=== PATIENT | female | born 1975 | race Hispanic/Latino ===

== ENCOUNTER 2017-06-30 01:25 | Outpatient (CLI) | payer OTHER | END 2017-06-30 01:26 | disposition home or self-care (01) | LOC: BICMRI 01:25 | PROVIDERS: ATTEND Podiatrist Foot & Ankle Surgery | DX: S93.602A Unspecified sprain of left foot, initial encounter (principal); S90.32XA Contusion of left foot, initial encounter; M79.672 Pain in left foot ==

== ENCOUNTER 2017-07-10 12:44 | Emergency (ER) | payer OTHER ==
[2017-07-10 13:25] LABS: Bilirubin Negative (Negative); Blood, Urine Negative (Negative); Glucose, Urine (Dipstick) Negative (Negative); Ketone, Urine Negative (Negative); Nitrite Negative (Negative); Protein, Urine (Dipstick) Negative (Neg-Trace); Urobilinogen 0.2 mg/dL (0.2-1.0)
[2017-07-10 13:37] LABS: #Eosinphils 0.1 thou/uL (0.0-0.7); #Lymphocytes 2.1 thou/uL (1.20-3.40); #Monocytes 0.3 thou/uL (0.11-0.59); #Neutrophils 2.6 thou/uL (1.40-6.50); %Basophils 0.5 % (0.0-1.0); %Eosinophils 1.8 % (0.0-10.0); %Lymphocytes 40.7 % (21.0-51.0); %Monocytes 6.5 % (0.0-10.0); White Blood Cell (WBC) Count 5.1 thou/uL (4.8-10.8)
[2017-07-10] MEDS ORDERED: Fentanyl 100 MCG/2 ML VIAL ONE (13:53)
[2017-07-10 14:10] LABS: ALT (SGPT) 45 U/L (8-55); AST (SGOT) 44 U/L (5-34); Alkaline Phosphatase 94 U/L (40-150); Anion Gap 13 mmol/L (10-20); BUN (Urea Nitrogen) 14 mg/dL (7.0-18.7); Bilirubin, Total 0.4 mg/dL (0.2-1.2); Calc. Creatinine Clearance 0 mL/min (70-130); Calcium 9.2 mg/dL (7.8-10.44); Carbon Dioxide 26 mmol/L (22-29); Chloride 106 mmol/L (98-107); Estimated GFR-MDRD 89; Globulin 3.2 g/dL (2.4-3.5); Protein, Total 7.1 g/dL (6.0-8.3)
--- NOTE | 2017-07-10 15:10 | CT ---
CT ABDOMEN WITHOUT IV CONTRAST: TECHNIQUE: Multiple axial tomograms obtained through the abdomen without IV enhancement. HISTORY: Left flank pain. FINDINGS: Lung bases clear. A 3 cm cyst in the upper right lobe of liver under the diaphragm. The liver, spleen, and pancreas ar e otherwise unremarkable. Post-cholecystectomy changes noted. Kidneys appear unremarkable. There is no evidence of hydronephrosis. There is evidence of a tiny ca lculus in the upper mid collecting structures of the left kidney measuring in the 2 mm range. No oth er evidence of urinary calculus. No ureteral calculus or obstruction seen. The bladder is only mild ly distended and appears unremarkable. Small bowel loops appear normal. Appendix appears normal. Colon unremarkable. Aorta normal caliber . No adenopathy. IMPRESSION: 1. A tiny nonobstructing calculus in the upper mid collecting structures of the left kidney. 2. No acute process identified. POS: [facility]
== END 2017-07-10 15:13 | disposition home or self-care (01) ==
LOC: ERS 12:44
DX: M54.9 Dorsalgia, unspecified (principal); Z79.899 Other long term (current) drug therapy
CPT/HCPCS: 74176; 80053; 81003; 85025; 87086; 96361; 96374; J3010

== ENCOUNTER 2017-07-14 12:09 | Emergency (ER) | payer OTHER ==
[2017-07-14 12:31] LABS: Bilirubin Negative (Negative); Blood, Urine Negative (Negative); Glucose, Urine (Dipstick) Negative (Negative); Ketone, Urine Negative (Negative); Nitrite Negative (Negative); Protein, Urine (Dipstick) Negative (Neg-Trace); Urobilinogen 0.2 mg/dL (0.2-1.0)
[2017-07-14] MEDS ORDERED: Ketorolac Tromethamine 60 MG/2 ML VIAL ONE (12:39)
== END 2017-07-14 12:53 | disposition home or self-care (01) ==
LOC: SCSER 12:09
DX: R10.9 Unspecified abdominal pain (principal)
CPT/HCPCS: 81003; 96372; J1885

== ENCOUNTER 2017-08-29 12:53 | Emergency (ER) | payer OTHER ==
[2017-08-29] MEDS ORDERED: Famotidine/PF 20 mg/2ml Vial ONE (13:53)
[2017-08-29] MEDS ORDERED: Ondansetron HCl/PF 4 MG/2 ML Vial ONE (13:53)
[2017-08-29 14:10] LABS: #Monocytes 0.4 thou/uL (0.11-0.59); #Neutrophils 6.8 thou/uL (1.40-6.50); %Basophils 0.5 % (0.0-1.0); %Eosinophils 0.3 % (0.0-10.0); %Lymphocytes 12.5 % (21.0-51.0); %Monocytes 4.4 % (0.0-10.0); %Neutrophils 82.3 % (42.0-75.0); Hemoglobin 12.4 g/dL (12.0-16.0); Mean Corpuscular HGB CONC 33.1 g/dL (32.0-36.0); Mean Corpuscular Hemoglobin 27.1 pg (27.0-31.0); Mean Corpuscular Volume 81.7 fl (81.0-99.0); Mean Platelet Volume 7.9 fL (7.4-10.4); Platelet Count 200 thou/uL (130-400); RBC Distribution Width 11.8 % (11.5-14.5); White Blood Cell (WBC) Count 8.3 thou/uL (4.8-10.8)
[2017-08-29 14:26] LABS: ALT (SGPT) 62 U/L (8-55); AST (SGOT) 56 U/L (5-34); Alkaline Phosphatase 95 U/L (40-150); Anion Gap 14 mmol/L (10-20); BUN (Urea Nitrogen) 10 mg/dL (7.0-18.7); Bilirubin, Total 0.5 mg/dL (0.2-1.2); Calc. Creatinine Clearance 0 mL/min (70-130); Calcium 9.2 mg/dL (7.8-10.44); Carbon Dioxide 24 mmol/L (22-29); Chloride 106 mmol/L (98-107); Estimated GFR-MDRD 87; Globulin 2.9 g/dL (2.4-3.5); Glucose 123 mg/dL (70-105); Lipase 12 U/L (8-78); Potassium 3.6 mmol/L (3.5-5.1); Protein, Total 6.9 g/dL (6.0-8.3); Sodium 140 mmol/L (136-145)
[2017-08-29 14:55] LABS: Bilirubin Negative (Negative); Blood, Urine Negative (Negative); Clarity Slightly Cloudy (Clear); Glucose, Urine (Dipstick) Negative (Negative); Leukocyte Negative (Negative); Nitrite Negative (Negative); Protein, Urine (Dipstick) Trace mg/dL (Neg-Trace); Urobilinogen 0.2 mg/dL (0.2-1.0); pH, Urine 5.5 (5.0-9.0)
--- NOTE | 2017-08-29 15:46 | RAD ---
CHEST ONE VIEW ABDOMEN TWO VIEWS: History: 41-year-old female with history of abdominal pain. Comparison: 06-08-16 FINDINGS: No significant acute process in the chest. No free intraperitoneal air. There is some gas and fluid n oted throughout the colon which certainly could account for the patient's diarrhea. No evidence for o vert bowel obstruction or calculus. IMPRESSION: Air fluid levels throughout the colon which certainly could account for the patient's diarrhea. No alirio wel obstruction, overt calculus or other acute process. POS: [facility]
== END 2017-08-29 15:45 | disposition home or self-care (01) ==
LOC: SCSER 12:53
DX: K52.9 Noninfective gastroenteritis and colitis, unspecified (principal); G61.0 Guillain-Barre syndrome; Z87.442 Personal history of urinary calculi; Z79.899 Other long term (current) drug therapy
CPT/HCPCS: 74022; 80053; 81003; 83690; 85025; 96361; 96374; 96375; J2405; S0028

== ENCOUNTER 2017-10-19 07:49 | Outpatient (CLI) | payer OTHER ==
--- NOTE | 2017-10-19 09:29 | ULT ---
HEPATIC ULTRASOUND WITH DUPLEX EVALUATION: Indication: Abnormal LFTs. TECHNIQUE: Grayscale, color Doppler and vascular duplex with spectral analysis was performed of the right upper quadrant and hepatic vasculature. FINDINGS: There is prominent fatty infiltration of the liver. The liver is enlarged measuring 19.3 cm. Spleen m easures 11.8 cm. The gallbladder is surgically absent. Common bile duct measures 7 mm. Visualized asp ect of the pancreas unremarkable. Right kidney measures 10.6 cm in length without focal lesion or hyd ronephrosis. There appropriate hepatopedal flow seen within the hepatic vasculature. IMPRESSION: 1. Hepatomegaly with fatty infiltration. 2. Cholecystectomy. 3. Appropriate hepatopedal flow demonstrated. POS: [facility]
== END 2017-10-19 07:50 | disposition home or self-care (01) ==
LOC: ULT 07:49
PROVIDERS: ATTEND Internal Medicine Gastroenterology
DX: R94.5 Abnormal results of liver function studies (principal); K76.0 Fatty (change of) liver, not elsewhere classified; Z90.49 Acquired absence of other specified parts of digestive tract
CPT/HCPCS: 76705

== ENCOUNTER 2017-10-27 20:08 | Observation (INO) | payer OTHER ==
[2017-10-27 22:06] LABS: Bilirubin Negative (Negative); Blood, Urine Negative (Negative); Clarity CLEAR (Clear); Glucose, Urine (Dipstick) Negative (Negative); Leukocyte Trace (Negative); Nitrite Negative (Negative); Protein, Urine (Dipstick) Negative (Neg-Trace); Specific Gravity, Urine 1.014 (1.002-1.036); Urobilinogen 0.2 mg/dL (0.2-1.0)
[2017-10-27 22:08] LABS: Bacteria/HPF None Seen HPF (None Seen); Hyaline Casts/LPF 0-3 HYALINE CAST LPF (0-3 Hyaline); Pathc Cast-AUWi Flag 0.29 (0-2.49); Squamous Epithelial 0-3 HPF (0-3)
[2017-10-27 22:18] LABS: RBC/HPF 0-3 HPF (0-3)
[2017-10-27 22:21] LABS: #Lymphocytes 1.7 thou/uL (1.20-3.40); #Monocytes 0.3 thou/uL (0.11-0.59); #Neutrophils 5.1 thou/uL (1.40-6.50); %Basophils 0.5 % (0.0-1.0); %Eosinophils 0.7 % (0.0-10.0); %Lymphocytes 23.1 % (21.0-51.0); %Monocytes 4.5 % (0.0-10.0); %Neutrophils 71.2 % (42.0-75.0); Mean Corpuscular HGB CONC 34.2 g/dL (32.0-36.0); Mean Corpuscular Hemoglobin 28.5 pg (27.0-31.0); Mean Corpuscular Volume 83.2 fl (81.0-99.0); Mean Platelet Volume 7.5 fL (7.4-10.4); Platelet Count 220 thou/uL (130-400); RBC Distribution Width 12.5 % (11.5-14.5); Red Blood Cell (RBC) Count 4.22 mill/uL (4.20-5.40); White Blood Cell (WBC) Count 7.2 thou/uL (4.8-10.8)
[2017-10-27 22:49] LABS: ALT (SGPT) 184 U/L (8-55); AST (SGOT) 159 U/L (5-34); Albumin 4.2 g/dL (3.5-5.0); Alkaline Phosphatase 152 U/L (40-150); Anion Gap 9 mmol/L (10-20); BUN (Urea Nitrogen) 9 mg/dL (7.0-18.7); Bilirubin, Total 0.4 mg/dL (0.2-1.2); Calc. Creatinine Clearance 0 mL/min (70-130); Calcium 8.8 mg/dL (7.8-10.44); Carbon Dioxide 26 mmol/L (22-29); Chloride 110 mmol/L (98-107); Estimated GFR-MDRD 81; Globulin 2.7 g/dL (2.4-3.5); Glucose 129 mg/dL (70-105); Potassium 3.8 mmol/L (3.5-5.1); Protein, Total 6.9 g/dL (6.0-8.3); Sodium 141 mmol/L (136-145)
--- NOTE | 2017-10-27 23:11 | CT ---
CT HEAD WITHOUT CONTRAST: 10/27/17 Multiple axial tomograms obtained through the head without IV enhancement. HISTORY: Dizziness. Comparison is made to a prior head CT of 02/13/15. Ventricles have normal size and position. No evidence of mass or hemorrhage. No evidence of acute inf arct. Sinuses and mastoids are aerated. IMPRESSION: No acute abnormality identified. POS: [facility]
[2017-10-28 01:46] VITALS: BMI 34.3
[2017-10-28] MEDS ORDERED: Cyclobenzaprine 10 MG TAB PO PRN (14:46)
[2017-10-28] MEDS ORDERED: Baclofen 10 MG TAB PO PRN (14:46)
[2017-10-28] MEDS ORDERED: Zolpidem Tartrate 5 MG TAB PO PRN (14:46)
[2017-10-28] MEDS ORDERED: Acetaminophen 325 MG TAB PO PRN (14:48)
[2017-10-28] MEDS ORDERED: methylPREDNISolone 4 mg Tablet PO SCH ×3 (15:00→21:00)
[2017-10-28] MEDS: Ibuprofen 800 MG TAB PO SCH ×2 (15:08→20:31)
[2017-10-28] MEDS: HYDROcodone/Acetaminophen 5/325 mg Tablet PO PRN (17:12)
[2017-10-28] MEDS ORDERED: ALPRAZolam 0.5 MG TAB PO SCH (17:30)
[2017-10-28] MEDS ORDERED: Lorazepam 2 MG/ML VIAL SLOW IVP SCH (17:30)
[2017-10-28 18:01] LABS: Bilirubin Negative (Negative); Blood, Urine Negative (Negative); Clarity CLEAR (Clear); Glucose, Urine (Dipstick) Negative (Negative); Leukocyte Negative (Negative); Nitrite Negative (Negative); Protein, Urine (Dipstick) Negative (Neg-Trace); Specific Gravity, Urine 1.008 (1.002-1.036); Urobilinogen 0.2 mg/dL (0.2-1.0); pH, Urine 7.5 (5.0-9.0)
[2017-10-28 18:04] LABS: Bacteria/HPF None Seen HPF (None Seen); Hyaline Casts/LPF 0-3 HYALINE CAST LPF (0-3 Hyaline); RBC/HPF 0-3 HPF (0-3); Squamous Epithelial 0-3 HPF (0-3); WBC/HPF 0-3 HPF (0-3)
[2017-10-28] MEDS: Gabapentin 300 MG CAP PO SCH (20:31)
[2017-10-28] MEDS: Pregabalin 50 MG CAP PO SCH (20:31)
[2017-10-28] MEDS ORDERED: Amitriptyline HCl 25 MG TAB PO PRN (21:00)
[2017-10-28] MEDS: Acyclovir 400 mg Tablet PO SCH (21:16)
--- NOTE | 2017-10-29 00:14 | CON ---
DATE OF CONSULTATION: 10/28/2017 REFERRING PROVIDER: Dr. Rissa Valdez. REASON FOR CONSULTATION: Paresthesia. HISTORY OF PRESENT ILLNESS: Ms. Virk is a pleasant 41-year-old female who has been cons ulted for evaluation of paresthesia in both upper and lower extremities and questionable Guillain-Bar re syndrome. She reports that a few days ago, she suddenly noticed weakness in the facial muscles on her right side. She was having difficulty with smiling, difficulty with closing her right eye. She had seen her primary care physician who started her on Medrol Dosepak along with acyclovir. She was discharged. She states that over on yesterday, she started having numbness and tingling in her hand s and feet. This was bothering and concerning her for Guillain-Berlin syndrome, which prompted her to present to the [facility]. 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 She was actually admitted to [facility] at that time and was seen by Dr. Benitez and the workup at that time was negative. She was then transferred to a facility in [facility] for secondary evaluation where she states that she was diagnosed with Guillain-Berlin syndrome and was given some form of medication for 5 days. This improved her symptoms completely and she was dis charged back to home. She did not have any facial weakness, vision difficulty, dysarthria, dysphagia or weakness in upper and lower extremities. Her balance was good at that time. The only symptom th at she had when she was diagnosed with Guillain-Berlin syndrome was paresthesia which she feels are si milar at this time and tells she feels like she may have Guillain-Berlin syndrome. 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 PAST SURGICAL HISTORY: Significant for hysterectomy, cholecystectomy, tubal ligation. SOCIAL HISTORY: She denies smoking, alcohol use, or illicit drug use. FAMILY HISTORY: Noncontributory. CURRENT MEDICATIONS: Please review MAR. ALLERGIES: No known drug allergies. REVIEW OF SYSTEMS: As mentioned above in HPI, negative. PHYSICAL EXAMINATION: VITAL SIGNS: Blood pressure 125/71, pulse of 77, temperature of 98.2, respirations of 16, O2 sats 96 % on room air. GENERAL: Well-developed, well-nourished female in no apparent distress. RESPIRATORY: Clear to auscultation bilaterally. CARDIOVASCULAR: Regular rate and rhythm. NEUROLOGIC: Mental status: The patient is awake, alert, oriented x3. Speech and language: Fluent speech. Cranial nerves: Pupils are 3 mm and reactive. Visual felipe are intact. Extraocular muscl es are intact. No nystagmus is noted. She has a right lower motor neuron type facial weakness. Ton toño and uvula are midline. Motor exam showed normal tone and bulk with a 5/5 strength in both upper and lower extremities. Deep tendon reflexes, she has 2+ reflexes in both upper and lower extremities . Babinski: Plantar responses flexion bilaterally. Coordination intact to [id number] tappi ng bilaterally. LABORATORY DATA: Reviewed, which included CBC, CMP, urinalysis which is significant for AST of 159, ALT of 184, alkaline phosphatase of 152. Urinalysis showed 4-6 wbc's with trace leukocyte esterase. IMAGING STUDIES: CT head without contrast was reviewed which showed no acute intracranial abnormalit y. IMPRESSION: 1. Paresthesia in both upper and lower extremities. 2. 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 PLAN: Ms. Virk is a pleasant 41-year-old female who presented with the right facial wea kness followed by paresthesia in both upper and lower extremities. Based on her presentation and exa m findings, she does not have clinical features indicative of Guillain-Berlin syndrome. In my opinion , her paresthesia is likely neuralgia neuritis. I will recommend obtaining MRI brain and C-spine wit hout contrast to rule out structural abnormality. If these are normal, she can be discharged home on Neurontin 300 mg b.i.d. No further neurological workup needed from my standpoint. Thank you for consultation.
[2017-10-29] MEDS ORDERED: methylPREDNISolone 4 mg Tablet PO SCH ×3 (07:30→21:00)
[2017-10-29] MEDS ORDERED: Estrogens, Conjugated 0.3 MG TAB PO SCH (09:00)
[2017-10-29] MEDS ORDERED: Oxybutynin ER 5 MG TAB PO SCH (09:00)
[2017-10-29] MEDS: HYDROcodone/Acetaminophen 5/325 mg Tablet PO PRN (09:03)
[2017-10-29] MEDS: Pregabalin 50 MG CAP PO SCH (09:04)
[2017-10-29] MEDS: Ibuprofen 800 MG TAB PO SCH ×2 (09:05→14:55)
[2017-10-29] MEDS: Gabapentin 300 MG CAP PO SCH (09:05)
[2017-10-29] MEDS: Acyclovir 400 mg Tablet PO SCH (10:11)
[2017-10-29] MEDS ORDERED: Lorazepam 2 MG/ML VIAL ONE (12:08)
--- NOTE | 2017-10-29 15:44 | MRI ---
MR CERVICAL SPINE WITHOUT CONTRAST 10/29/17 INDICATION: Bilateral upper extremity paresthesias. COMPARISON: Prior exam 02/15/15. TECHNIQUE: Multiplanar and multisequence MR images were obtained in the cervical spine without IV contrast. FINDINGS: There is straightening of the normal cervical lordosis. Bone marrow signal intensity appears within normal limits. Craniocervical junction appears within nor mal limits. The posterior fossa and prevertebral soft tissues appear within normal limits. At C2-C3, there is no appreciable central canal or neural foraminal narrowing. There is mild bilatera l facet joint degenerative change. This is stable to the prior exam. At C3-4, there is mild to moderate facet joint degenerative change. At C4-5, there is uncovertebral hypertrophy and facet joint degenerative change and a mild broad base d bulge. This is stable to the prior exam. At C5-6, there is a broad based bulge with facet hypertrophy and uncovertebral hypertrophy inducing s table mild central canal narrowing with ventral effacement of the subarachnoid space without definite cord compression. No neural foraminal narrowing is evident. At C6-7, there is no appreciable central canal or neural foraminal narrowing. At C7-T1, there is no appreciable central canal or neural foraminal narrowing. IMPRESSION: 1. Stable mild central canal narrowing at C5-6 without evidence of cord compression. 2. No neural foraminal narrowing demonstrated. 3. Findings were similar to a comparison examination dated 02/15/15. POS: [facility]
--- NOTE | 2017-10-29 15:46 | MRI ---
BRAIN MRI NONCONTRAST: 10/29/17 CLINICAL HISTORY: Neuropathy, left side oral droop. FINDINGS: There is normal size of ventricular system. No midline shift. No acute territorial infarction or mass effect. No significant signal abnormalities of brain parenchyma. Imaged skull base flow voids are pa tent. There is retention cysts in the right maxillary sinus. IMPRESSION: No acute intracranial abnormalities. POS: [facility]
[2017-10-29 16:17] VITALS: BP 128/72; TEMP 98.2
--- NOTE | 2017-10-29 16:49 | PRG ---
DATE OF SERVICE: 10/29/2017 SUBJECTIVE: Ms. Virk reports of improvement in her paresthesia after starting gabapentin. She h ad an MRI brain and cervical spine done today, which MRI brain was normal. MRI of C-spine showed mil d disk bulge at C5-C6 that is stable in appearance compared to previous study done on 01/2015. There is no cord compression or cord signal abnormalities noted. OBJECTIVE: VITAL SIGNS: Blood pressure of 128/72, pulse of 82, temperature of 98.2, respirations of 20, O2 sats of 96% on room air. GENERAL: Well-developed, well-nourished female, in no apparent distress. RESPIRATORY: Clear to auscultation bilaterally. CARDIOVASCULAR: Regular rate and rhythm. NEUROLOGIC: Unchanged when compared to yesterday. IMAGING STUDIES: MRI brain and cervical spine results were reviewed. Findings are as noted on the s ubjective component of this report. IMPRESSION: 1. Paresthesia. 2. Right-sided Hitchcock's palsy. ASSESSMENT AND PLAN: Ms. Virk is a pleasant 41-year-old female who presented with the paresthesi a in both upper and lower extremities as well as a right facial droop. She has a Hitchcock's palsy on the right side. Her MRI brain and C-spine are normal. Her symptoms are better with the use of Neuronti n. I have advised her to continue Neurontin at the same dose. I will be happy to see her in my clin ic in 4 weeks post-discharge if she desires. Otherwise, she can follow up with her primary care phys ician who can continue her on Gabapentin 300 mg twice daily. The patient is okay to be discharged to home from my standpoint.
[2017-10-29] MEDS ORDERED: LINACLOTIDE 290 MCG PO SCH (21:00)
== END 2017-10-29 17:10 | disposition home or self-care (01) ==
LOC: ERS 20:08 → 2SW 10-28 01:19
PROVIDERS: ADMIT Internal Medicine; ATTEND Internal Medicine
DX: G51.0 Bell's palsy (principal); G47.00 Insomnia, unspecified; G61.0 Guillain-Barre syndrome; R20.2 Paresthesia of skin; M50.222 Other cervical disc displacement at C5-C6 level; Z87.442 Personal history of urinary calculi; Z79.52 Long term (current) use of systemic steroids; Z79.2 Long term (current) use of antibiotics; Z79.899 Other long term (current) drug therapy
CPT/HCPCS: 36415; 70450; 70551; 72141; 80053; 81001; 81003; 81015; 85025; 93005; 96374; G0378; J2060

== ENCOUNTER 2017-12-29 11:51 | Outpatient (CLI) | payer OTHER | END 2017-12-29 11:52 | disposition home or self-care (01) | LOC: BICMAMMO 11:51 | PROVIDERS: ATTEND Physician Assistant | DX: Z12.31 Encounter for screening mammogram for malignant neoplasm of breast (principal) | CPT/HCPCS: 77067 ==

== ENCOUNTER 2018-01-11 15:05 | Emergency (ER) | payer OTHER ==
[2018-01-11 15:33] LABS: Bilirubin Negative (Negative); Blood, Urine Negative (Negative); Clarity CLEAR (Clear); Glucose, Urine (Dipstick) Negative (Negative); Leukocyte Negative (Negative); Nitrite Negative (Negative); Protein, Urine (Dipstick) Negative (Neg-Trace); Specific Gravity, Urine 1.014 (1.002-1.036); Urobilinogen 0.2 mg/dL (0.2-1.0); pH, Urine 6.5 (5.0-9.0)
[2018-01-11 15:46] LABS: #Basophils 0.1 thou/uL (0.0-0.2); #Eosinphils 0.1 thou/uL (0.0-0.7); #Lymphocytes 2.3 thou/uL (1.20-3.40); #Monocytes 0.3 thou/uL (0.11-0.59); #Neutrophils 2.7 thou/uL (1.40-6.50); %Basophils 1.4 % (0.0-1.0); %Eosinophils 1.7 % (0.0-10.0); %Monocytes 5.3 % (0.0-10.0); %Neutrophils 49.5 % (42.0-75.0); Hemoglobin 13.7 g/dL (12.0-16.0); Mean Corpuscular Hemoglobin 28.1 pg (27.0-31.0); Mean Corpuscular Volume 82.6 fl (81.0-99.0); Mean Platelet Volume 7.5 fL (7.4-10.4); Platelet Count 236 thou/uL (130-400); RBC Distribution Width 12.4 % (11.5-14.5); Red Blood Cell (RBC) Count 4.86 mill/uL (4.20-5.40); White Blood Cell (WBC) Count 5.3 thou/uL (4.8-10.8)
[2018-01-11 16:06] LABS: ALT (SGPT) 99 U/L (8-55); AST (SGOT) 94 U/L (5-34); Albumin 4.7 g/dL (3.5-5.0); Alkaline Phosphatase 127 U/L (40-150); Anion Gap 13 mmol/L (10-20); BUN (Urea Nitrogen) 13 mg/dL (7.0-18.7); Bilirubin, Total 0.6 mg/dL (0.2-1.2); Calc. Creatinine Clearance 0 mL/min (70-130); Calcium 9.9 mg/dL (7.8-10.44); Carbon Dioxide 26 mmol/L (22-29); Chloride 104 mmol/L (98-107); Estimated GFR-MDRD 83; Globulin 3.5 g/dL (2.4-3.5); Glucose 117 mg/dL (70-105); Potassium 3.5 mmol/L (3.5-5.1); Protein, Total 8.2 g/dL (6.0-8.3); Sodium 139 mmol/L (136-145)
[2018-01-11] MEDS ORDERED: Ketorolac Tromethamine 30 MG/ML VIAL ONE (16:34)
--- NOTE | 2018-01-11 19:17 | CT ---
CT ABDOMEN NONCONTRAST CT PELVIS NONCONTRAST: (urolithiasis protocol) DATE: 01/11/18 TIME: 4:57 p.m. HISTORY: 42-year-old female with left flank pain for three days, with dysuria and nausea. History of calculus of the left kidney. COMPARISON: 07/10/17 TECHNIQUE: IV injection of iodinated contrast media: none Oral contrast media: none FINDINGS: Other than for urolithiasis, the lack of IV and oral contrast limits the evaluation. Diffusely low hepatic attenuation represents fatty liver. The approximately 3 cm lower attenuation le soco in an anterior subcapsular location at the liver dome in the right lobe of the liver, is stable since 08/03/12, and is a benign cyst. There are cholecystectomy clips. There is a tiny 2 mm calculus in a left renal upper/mid pole calyx, which was present in 07/10/17. There is a tiny 1 mm calculus in a right renal upper pole calyx (visible only on coronal reconstruction image 92 of 144, series 601), w hich was also present previously in 07/10/17, and also in 08/03/12. There is no calculus in the ureters or bladder. There is no hydroureteronephrosis. Within the limitat ions of a noncontrast scan, no pathology is identified involving the appendix, abdominal aorta, adren als, pancreas, or spleen. No signs of acute colonic diverticulitis. The uterus is absent. No small alirio wel dilatation. No ascites or pneumoperitoneum identified in the pelvic cavity or abdominal cavity. L dhruv bases are grossly clear. No destructive osseous lesion identified. IMPRESSION: 1. Positive for bilateral nephrolithiasis: Tiny calculi, one in each kidney. 2. No obstructive uropathy. 3. Hepatic steatosis. 4. Status post hysterectomy and cholecystectomy. 5. Benign hepatic cyst. IMAN Cerda POS: [facility]
== END 2018-01-11 17:54 | disposition home or self-care (01) ==
LOC: ERS 15:05
DX: N20.0 Calculus of kidney (principal); G47.00 Insomnia, unspecified; Z79.899 Other long term (current) drug therapy
CPT/HCPCS: 36415; 74176; 80053; 81003; 83690; 85025; 96361; 96374; J1885

== ENCOUNTER 2018-03-10 15:11 | Emergency (ER) | payer OTHER ==
[2018-03-10] MEDS ORDERED: Ketorolac Tromethamine 30 MG/ML VIAL ONE (15:39)
[2018-03-10] MEDS ORDERED: Famotidine/PF 20 mg/2ml Vial ONE (15:46)
[2018-03-10] MEDS ORDERED: Famotidine 20 MG TAB ONE (15:47)
[2018-03-10 15:55] LABS: Bilirubin Negative (Negative); Blood, Urine Moderate (Negative); Clarity Slightly Cloudy (Clear); Glucose, Urine (Dipstick) Negative (Negative); Leukocyte Negative (Negative); Nitrite Negative (Negative); Protein, Urine (Dipstick) Trace mg/dL (Neg-Trace); Specific Gravity, Urine 1.015 (1.005-1.030); Urobilinogen 0.2 mg/dL (0.2-1.0); pH, Urine 7.5 (5.0-9.0)
[2018-03-10 15:57] LABS: #Basophils 0.1 thou/uL (0.0-0.2); #Lymphocytes 2.4 thou/uL (1.20-3.40); #Monocytes 0.4 thou/uL (0.11-0.59); #Neutrophils 4.6 thou/uL (1.40-6.50); %Basophils 0.8 % (0.0-1.0); %Eosinophils 0.3 % (0.0-10.0); %Lymphocytes 32.4 % (21.0-51.0); %Monocytes 5.7 % (0.0-10.0); %Neutrophils 60.7 % (42.0-75.0); Hemoglobin 13.3 g/dL (12.0-16.0); Mean Corpuscular HGB CONC 35.6 g/dL (32.0-36.0); Mean Corpuscular Hemoglobin 28.1 pg (27.0-31.0); Mean Corpuscular Volume 78.8 fL (78.0-98.0); Platelet Count 225 thou/uL (130-400); RBC Distribution Width 11.1 % (11.5-14.5); Red Blood Cell (RBC) Count 4.75 mill/uL (4.20-5.40); White Blood Cell (WBC) Count 7.5 thou/uL (4.8-10.8)
[2018-03-10 15:58] LABS: WBC/HPF 0-3 HPF (0-3)
[2018-03-10 15:59] LABS: Bacteria/HPF 1+ HPF (None Seen); Renal Epithelial 0-3 HPF (0-3)
[2018-03-10 16:10] LABS: ALT (SGPT) 56 U/L (8-55); AST (SGOT) 56 U/L (5-34); Albumin 4.5 g/dL (3.5-5.0); Alkaline Phosphatase 105 U/L (40-150); Anion Gap 14 mmol/L (10-20); BUN (Urea Nitrogen) 15 mg/dL (7.0-18.7); Bilirubin, Total 0.6 mg/dL (0.2-1.2); Calc. Creatinine Clearance 0 mL/min (70-130); Carbon Dioxide 26 mmol/L (22-29); Chloride 106 mmol/L (98-107); Estimated GFR-MDRD 63; Globulin 3.1 g/dL (2.4-3.5); Glucose 104 mg/dL (70-105); Lipase 23 U/L (8-78); Potassium 3.7 mmol/L (3.5-5.1); Protein, Total 7.6 g/dL (6.0-8.3); Sodium 142 mmol/L (136-145)
== END 2018-03-10 17:41 | disposition home or self-care (01) ==
LOC: SCSER 15:11
DX: M54.5 Low back pain (principal); R31.9 Hematuria, unspecified; G47.00 Insomnia, unspecified; G61.0 Guillain-Barre syndrome; Z87.442 Personal history of urinary calculi; Z79.899 Other long term (current) drug therapy
CPT/HCPCS: 36415; 80053; 81003; 81015; 82550; 83690; 85025; 96372; J1885; S0028

== ENCOUNTER 2018-04-05 10:29 | Outpatient (CLI) | payer OTHER ==
--- NOTE | 2018-04-06 15:53 | RAD ---
MODIFIED BARIUM SWALLOW IN THE PRESENCE OF SPEECH PATHOLOGIST: 04/06/18 HISTORY: Dysphagia unspecified. Feeding difficulties. EXPOSURE: 28.9 seconds. 20.85 mGy. FINDINGS: In the presence of speech pathologist, the patient was administered puree, nectar thick, thin liquid, mechanical soft consistencies and a barium tablet. No evidence of penetration or aspiration. IMPRESSION: Please refer to speech pathologist report for feeding recommendations. POS: [facility]
== END 2018-04-05 10:30 | disposition home or self-care (01) ==
PROVIDERS: ATTEND Family Medicine Sports Medicine
DX: R13.10 Dysphagia, unspecified (principal); R63.3 Feeding difficulties
CPT/HCPCS: 74230; G8996-GN-CI; G8997-GN-CI; G8998-GN-CI

== ENCOUNTER 2018-08-05 09:42 | Outpatient (CLI) | payer OTHER ==
--- NOTE | 2018-08-05 11:28 | CT ---
CT OF THE ABDOMEN AND PELVIS WITHOUT CONTRAST: DATE: 08/05/2018. PROVIDED CLINICAL HISTORY: Calculus of kidney. FINDINGS: Comparison 01/11/2018. The visualized lung bases are free of significant opacity. Stable anterior segment right hepatic lobe cyst. Tiny 1-2 mm nonobstructing mid pole left renal calc ulus. No additional urinary tract calculi are evident. No evidence for hydronephrosis. The solid a bdominal organs are suboptimally evaluated in the absence of IV contrast material but demonstrate an unremarkable unenhanced CT appearance otherwise. There is no bowel dilatation, inflammatory fat stranding, free fluid, or lymph node enlargement appar ent. Changes of prior cholecystectomy are seen. The osseous structures demonstrate no concerning osteoblastic or osteolytic lesions. IMPRESSION: Tiny nonobstructing left renal calculus. POS: [facility]
== END 2018-08-05 09:43 | disposition home or self-care (01) ==
LOC: BICCT 09:42
PROVIDERS: ATTEND Urology
DX: N20.0 Calculus of kidney (principal)
CPT/HCPCS: 74176

== ENCOUNTER 2019-01-30 21:54 | Emergency (ER) | payer OTHER ==
[2019-01-30] MEDS ORDERED: Ondansetron ODT 8 MG TAB ONE (22:37)
[2019-01-30] MEDS ORDERED: Ketorolac Tromethamine 30 MG/ML VIAL ONE (22:38)
[2019-01-30] MEDS ORDERED: Lidocaine Viscous Sol 2% 15 ml UD Cup ONE (22:38)
[2019-01-30] MEDS ORDERED: Mag-Al Plus 1200 MG/1200 MG/120 MG/30 ML UDCUP ONE (22:38)
[2019-01-30 22:42] LABS: Bilirubin Negative (Negative); Blood, Urine Trace (Negative); Clarity Slightly Cloudy (Clear); Glucose, Urine (Dipstick) Negative (Negative); Leukocyte Negative (Negative); Nitrite Negative (Negative); Protein, Urine (Dipstick) Negative (Neg-Trace); Urobilinogen 0.2 mg/dL (Less than 2)
[2019-01-30 22:45] LABS: #Eosinphils 0.1 thou/uL (0.0-0.7); #Lymphocytes 2.1 thou/uL (1.20-3.40); #Monocytes 0.4 thou/uL (0.11-0.59); #Neutrophils 3.3 thou/uL (1.40-6.50); %Basophils 0.8 % (0.0-1.0); %Eosinophils 1.4 % (0.0-10.0); %Lymphocytes 36.1 % (21.0-51.0); %Neutrophils 55.7 % (42.0-75.0); Hemoglobin 10.8 g/dL (12.0-16.0); Mean Corpuscular HGB CONC 34.8 g/dL (32.0-36.0); Mean Corpuscular Hemoglobin 27.6 pg (27.0-31.0); Mean Corpuscular Volume 79.4 fL (78.0-98.0); Mean Platelet Volume 7.6 fL (7.4-10.4); Platelet Count 207 thou/uL (130-400); RBC Distribution Width 12.6 % (11.5-14.5); Red Blood Cell (RBC) Count 3.91 mill/uL (4.20-5.40); White Blood Cell (WBC) Count 5.8 thou/uL (4.8-10.8)
[2019-01-30 22:51] LABS: Bacteria/HPF 1+ HPF (None Seen); RBC/HPF 0-3 HPF (0-3); Squamous Epithelial 0-3 HPF (0-3); WBC/HPF 0-3 HPF (0-3)
[2019-01-30 22:58] LABS: ALT (SGPT) 16 U/L (8-55); AST (SGOT) 18 U/L (5-34); Albumin 3.6 g/dL (3.5-5.0); Alkaline Phosphatase 87 U/L (40-150); Anion Gap 13 mmol/L (10-20); BUN (Urea Nitrogen) 16 mg/dL (7.0-18.7); Bilirubin, Total 0.3 mg/dL (0.2-1.2); Calc. Creatinine Clearance 0 mL/min (70-130); Calcium 8.8 mg/dL (7.8-10.44); Carbon Dioxide 24 mmol/L (22-29); Chloride 109 mmol/L (98-107); Estimated GFR-MDRD 54; Globulin 2.7 g/dL (2.4-3.5); Glucose 102 mg/dL (70-105); Lipase 23 U/L (8-78); Potassium 4.1 mmol/L (3.5-5.1); Protein, Total 6.3 g/dL (6.0-8.3); Sodium 142 mmol/L (136-145)
== END 2019-01-30 23:35 | disposition home or self-care (01) ==
LOC: SCSER 21:54
DX: R10.13 Epigastric pain (principal); R11.0 Nausea; G47.00 Insomnia, unspecified; Z79.899 Other long term (current) drug therapy
CPT/HCPCS: 36415; 80053; 81001; 83690; 85025; 96372; 99284; J0500; J1885

== ENCOUNTER 2019-04-28 15:46 | Emergency (ER) | payer OTHER ==
[2019-04-28] MEDS ORDERED: Ondansetron ODT 4 MG TAB ONE (16:31)
[2019-04-28 16:44] LABS: Bilirubin Negative (Negative); Blood, Urine Negative (Negative); Clarity Clear (Clear); Glucose, Urine (Dipstick) Negative (Negative); Leukocyte Negative (Negative); Nitrite Negative (Negative); Protein, Urine (Dipstick) Negative (Neg-Trace); Urobilinogen 0.2 mg/dL (Less than 2)
--- NOTE | 2019-04-28 16:51 | CT ---
EXAM: Abdomen and pelvic CT scan without contrast: HISTORY: Left flank pain COMPARISON: 08/05/2018 FINDINGS: The visualized lung bases are clear. Liver: Stable hypodensity involving subcapsular aspect of the liver, anteriorly near the junction of the medial segment left hepatic lobe, and anterior segment right hepatic lobe. Low-attenuation of the liver indicates hepatic steatosis. Gallbladder: Surgically absent Pancreas: Unremarkable Spleen: Unremarkable. Adrenal glands: Unremarkable. Kidneys: Punctate nonobstructive left nephrolithiasis. No right-sided urolithiasis. Bowel: No evidence for bowel obstruction. Urinary Bladder: The urinary bladder is unremarkable. Adenopathy: No adenopathy within the abdomen or pelvis. Free Air: No free air. Ascites: No ascites. Osseous structures: No acute osseous abnormalities. IMPRESSION: Nonobstructive left nephrolithiasis.
[2019-04-28 17:00] LABS: #Basophils 0.1 thou/uL (0.0-0.2); #Eosinphils 0.1 thou/uL (0.0-0.7); #Lymphocytes 2.6 thou/uL (1.20-3.40); #Monocytes 0.3 thou/uL (0.11-0.59); #Neutrophils 2.7 thou/uL (1.40-6.50); %Basophils 1.2 % (0.0-1.0); %Eosinophils 1.1 % (0.0-10.0); %Lymphocytes 45.2 % (21.0-51.0); %Monocytes 5.7 % (0.0-10.0); %Neutrophils 46.8 % (42.0-75.0); Hemoglobin 11.3 g/dL (12.0-16.0); Mean Corpuscular HGB CONC 33.8 g/dL (32.0-36.0); Mean Corpuscular Hemoglobin 27.7 pg (27.0-31.0); Mean Corpuscular Volume 81.8 fL (78.0-98.0); Mean Platelet Volume 7.5 fL (7.4-10.4); Platelet Count 207 thou/uL (130-400); RBC Distribution Width 12.6 % (11.5-14.5); Red Blood Cell (RBC) Count 4.07 mill/uL (4.20-5.40); White Blood Cell (WBC) Count 5.7 thou/uL (4.8-10.8)
[2019-04-28 17:15] LABS: ALT (SGPT) 22 U/L (8-55); AST (SGOT) 22 U/L (5-34); Albumin 3.9 g/dL (3.5-5.0); Alkaline Phosphatase 81 U/L (40-110); Anion Gap 13 mmol/L (10-20); BUN (Urea Nitrogen) 11 mg/dL (7.0-18.7); Bilirubin, Total 0.3 mg/dL (0.2-1.2); Calc. Creatinine Clearance 0 mL/min (70-130); Calcium 8.6 mg/dL (7.8-10.44); Carbon Dioxide 27 mmol/L (22-29); Chloride 107 mmol/L (98-107); Estimated GFR-MDRD 77; Globulin 2.5 g/dL (2.4-3.5); Glucose 94 mg/dL (70-105); Lipase 18 U/L (8-78); Potassium 3.7 mmol/L (3.5-5.1); Protein, Total 6.4 g/dL (6.0-8.3); Sodium 143 mmol/L (136-145)
== END 2019-04-28 17:28 | disposition home or self-care (01) ==
LOC: SCSER 15:46
DX: N20.0 Calculus of kidney (principal); D64.9 Anemia, unspecified
CPT/HCPCS: 36415; 74176; 80053; 81003; 83690; 85025; Q0162

== ENCOUNTER 2019-05-04 13:39 | Outpatient (CLI) | payer OTHER ==
--- NOTE | 2019-05-04 16:43 | ULT ---
BILATERAL RENAL ULTRASOUND: Date: 05/04/19 HISTORY: Bilateral flank pain x3 weeks. Recently treated for UTI. FINDINGS: Real-time imaging of the right and left kidneys performed. The right kidney measures 11.0 cm and the left kidney measures 10.9 cm in size. No signs of cyst, mass, or obstruction. The bladder region is unremarkable. IMPRESSION: Unremarkable renal ultrasound. POS: [facility]
== END 2019-05-04 13:40 | disposition home or self-care (01) ==
LOC: BICULT 13:39
PROVIDERS: ATTEND Urology
DX: N20.0 Calculus of kidney (principal)
CPT/HCPCS: 76770

== ENCOUNTER 2019-08-21 08:22 | Outpatient (CLI) | payer OTHER ==
--- NOTE | 2019-08-21 09:37 | ULT ---
EXAM: US Hepatic Doppler PROVIDED CLINICAL HISTORY: Abnormal liver function tests COMPARISON: 10/19/2017 FINDINGS: Again, the liver demonstrates increased echogenicity most compatible with diffuse fatty infiltration which does limit evaluation of the hepatic parenchyma. There is a circumscribed anechoic cystic lesion measuring 2.8 cm with posterior acoustic enhancement seen in the anterior aspect left hepatic lobe demonstrate characteristics most compatible with a cyst. The cyst was partially imaged on prior exam. The spleen has a normal sonographic appearance and is not enlarged. A small portion of the right kidney is imaged and where seen has a normal sonographic appearance. Milton ited visualized portions of the pancreas and visualized portions of the IVC demonstrate a normal sonographic appearance. The gallbladder is not visualized compatible with patient's history of prior cholecystectomy. The common duct is normal in caliber measuring 0.6 cm in diameter. Hepatic Doppler evaluation with spectral analysis and color flow evaluation: There is normal directional flow seen within the portal, hepatic, and splenic veins with arterial wav eforms documented in the hepatic and splenic arteries. IMPRESSION: 1. Fatty infiltration of the liver with hepatic cyst seen in the left hepatic lobe. 2. Cholecystectomy. 3. Hepatopedal flow demonstrated.
== END 2019-08-21 08:23 | disposition home or self-care (01) ==
LOC: SCSULT 08:22
PROVIDERS: ATTEND Physician Assistant Medical
DX: R94.5 Abnormal results of liver function studies (principal); K76.0 Fatty (change of) liver, not elsewhere classified; K76.89 Other specified diseases of liver; Z90.49 Acquired absence of other specified parts of digestive tract
CPT/HCPCS: 76705

== ENCOUNTER 2019-09-27 11:03 | Outpatient (CLI) | payer OTHER ==
--- NOTE | 2019-09-27 13:14 | MMO ---
Bilateral MAMMO Bilat Screen DDI. CLINICAL HISTORY: Patient is 43 years old and is seen for screening. The patient has no family history of breast cancer. The patient has no personal history of cancer. VIEWS: The views performed were: bilateral craniocaudal with tomosynthesis and bilateral mediolateral oblique with tomosynthesis. FILMS COMPARED: The present examination has been compared to prior imaging studies performed at [facility] on 08/20/2015, 08/27/2015 and 12/28/2016. This study has been interpreted with the assistance of computer-aided detection. MAMMOGRAM FINDINGS: The breasts are heterogeneously dense, which could obscure a lesion on mammography. There are no suspicious masses, suspicious calcifications, or new areas of architectural distortion. IMPRESSION: THERE IS NO MAMMOGRAPHIC EVIDENCE OF MALIGNANCY. A ROUTINE FOLLOW-UP MAMMOGRAM IN 1 YEAR IS RECOMMENDED. ACR BI-RADS Category 1 - Negative MAMMOGRAPHY NOTE: 1. A negative mammogram report should not delay a biopsy if a dominant of clinically suspicious mass is present. 2. Approximately 10% to 15% of breast cancers are not detected by mammography. 3. Adenosis and dense breasts may obscure an underlying neoplasm. Reported by: VITALY CONTRERAS MD Electonically Signed: [id number]
== END 2019-09-27 11:04 | disposition home or self-care (01) ==
LOC: BICMAMMO 11:03
PROVIDERS: ATTEND Physician Assistant
DX: Z12.31 Encounter for screening mammogram for malignant neoplasm of breast (principal)
CPT/HCPCS: 77067

== ENCOUNTER 2019-10-11 08:20 | Outpatient (CLI) | payer OTHER ==
--- NOTE | 2019-10-11 11:28 | RAD ---
XR Barium Swallow Esophagus HISTORY: Abdominal bloating reflux and dysphagia. COMPARISON: None. FINDINGS: The patient ingested the barium and crystals without difficulty. The esophageal mucosa and motility were normal. The patient swallowed a barium tablet there was mild hang-up to the tablet but after a few swallows passed through the GE junction. No hiatal hernia or reflux. IMPRESSION: Unremarkable barium swallow. Minimal delay in passage of the barium tablet through the GE junction.
== END 2019-10-11 08:21 | disposition home or self-care (01) ==
LOC: RAD 08:20
PROVIDERS: ATTEND Physician Assistant Medical
DX: K21.9 Gastro-esophageal reflux disease without esophagitis (principal); K76.0 Fatty (change of) liver, not elsewhere classified; R14.0 Abdominal distension (gaseous); R94.5 Abnormal results of liver function studies; R13.10 Dysphagia, unspecified; K58.1 Irritable bowel syndrome with constipation
CPT/HCPCS: 74220

== ENCOUNTER 2020-01-19 10:10 | Outpatient (CLI) | payer OTHER ==
--- NOTE | 2020-01-19 10:55 | MMO ---
Left Breast MAMMO Unilat Diag DDI LT+PORTER. CLINICAL HISTORY: Patient is 44 years old and is seen for diagnostic exam and palpable abnormality in the left breast. The patient has no family history of breast cancer. The patient has no personal history of cancer. VIEWS: The views performed were: left craniocaudal with tomosynthesis; left mediolateral oblique with tomosynthesis; and left mediolateral with tomosynthesis. FILMS COMPARED: The present examination has been compared to prior imaging studies performed at [facility] on 08/27/2015, 12/28/2016, 09/27/2019 and 01/19/2020. This study has been interpreted with the assistance of computer-aided detection. MAMMOGRAM FINDINGS: The breast is heterogeneously dense, which could obscure a lesion on mammography. No mammographic or sonograhic abnormality is seen at the site of palpable concern in the left breast. There are no suspicious masses, suspicious calcifications, or new areas of architectural distortion. IMPRESSION: THERE IS NO MAMMOGRAPHIC EVIDENCE OF MALIGNANCY. A ROUTINE FOLLOW-UP MAMMOGRAM IN 1 YEAR IS RECOMMENDED. THE RESULTS OF THIS EXAM WERE SENT TO THE PATIENT. ACR BI-RADS Category 2 - Benign finding MAMMOGRAPHY NOTE: 1. A negative mammogram report should not delay a biopsy if a dominant of clinically suspicious mass is present. 2. Approximately 10% to 15% of breast cancers are not detected by mammography. 3. Adenosis and dense breasts may obscure an underlying neoplasm. Reported by: CHRISTIANO GRAHAM MD Electonically Signed: [id number]
--- NOTE | 2020-01-19 12:58 | ULT ---
LEFT BREAST ULTRASOUND: HISTORY: Palpable abnormality 2:30 position left breast 4 cm from the nipple. FINDINGS: Real-time imaging in the area of concern failed to show any abnormality. An area of slight asymmetry is seen at the 6 o'clock position in the left breast was also imaged and show no area of concern. IMPRESSION: Unremarkable left breast ultrasound. POS: [facility]
== END 2020-01-19 10:11 | disposition home or self-care (01) ==
LOC: BICMAMMO 10:10
PROVIDERS: ATTEND Physician Assistant
DX: N63.20 Unspecified lump in the left breast, unspecified quadrant (principal)
CPT/HCPCS: G0279

== ENCOUNTER 2020-04-02 10:19 | Observation (INO) | payer OTHER ==
[2020-04-02] MEDS ORDERED: Aspirin Chewable 81 MG TAB ONE (10:38)
[2020-04-02 10:47] LABS: #Basophils 0.1 thou/uL (0.0-0.2); #Eosinphils 0.1 thou/uL (0.0-0.7); #Lymphocytes 3.5 thou/uL (1.20-3.40); #Monocytes 0.6 thou/uL (0.11-0.59); #Neutrophils 3.7 thou/uL (1.40-6.50); %Basophils 1.2 % (0.0-1.0); %Eosinophils 1.5 % (0.0-10.0); %Monocytes 7.1 % (0.0-10.0); %Neutrophils 46.1 % (42.0-75.0); Hemoglobin 13.4 g/dL (12.0-16.0); Mean Corpuscular HGB CONC 33.3 g/dL (32.0-36.0); Mean Corpuscular Hemoglobin 28.5 pg (27.0-31.0); Mean Corpuscular Volume 85.5 fL (78.0-98.0); Mean Platelet Volume 7.7 fL (7.4-10.4); Platelet Count 244 thou/uL (130-400); RBC Distribution Width 12.3 % (11.5-14.5); Red Blood Cell (RBC) Count 4.71 mill/uL (4.20-5.40)
[2020-04-02 10:55] LABS: BHCG - Serum Negative (NEGATIVE); Pregs Control Background? CLEAR/WHITE (CLR/WHITE); Pregs Control Bar Appear? YES (CONTROL BAR)
[2020-04-02 11:14] LABS: ALT (SGPT) 42 U/L (8-55); AST (SGOT) 33 U/L (5-34); Albumin 4.2 g/dL (3.5-5.0); Alkaline Phosphatase 92 U/L (40-110); Anion Gap 13 mmol/L (10-20); BUN (Urea Nitrogen) 15 mg/dL (7.0-18.7); Bilirubin, Total 0.6 mg/dL (0.2-1.2); Calc. Creatinine Clearance 0 mL/min (70-130); Calcium 9.3 mg/dL (7.8-10.44); Carbon Dioxide 28 mmol/L (22-29); Chloride 103 mmol/L (98-107); Estimated GFR-MDRD 80; Globulin 2.9 g/dL (2.4-3.5); Glucose 102 mg/dL (70-105); Potassium 3.5 mmol/L (3.5-5.1); Protein, Total 7.1 g/dL (6.0-8.3); Sodium 140 mmol/L (136-145)
--- NOTE | 2020-04-02 12:13 | RAD ---
PORTABLE CHEST: Date: 04/02/2020 HISTORY: Chest pain. COMPARISON: 09/01/2016 study. FINDINGS: Heart size and mediastinum are within normal limits. The lungs are clear of infiltrates. No significa nt bony findings. IMPRESSION: No active intrathoracic disease. POS: [facility]
--- NOTE | 2020-04-02 13:14 | PDOC.HHP ---
Hospitalist HPI - History of Present Illness Chest pain History of Present Illness: Patient is a pleasant 39-year-old lady who was seen in the emergency room on April 02, 2020. She reports that over the last 4 days she has had on and off chest pain. She describes it as retrosternal and over the left side of her chest, on and off, sharp, 8 out of 10 at its worst, radiating to the left side of her neck and jaw , worse with exertion, improving with rest, accompanied by nausea and lightheadedness, not accompanied by shortness of breath. It has been getting worse over the last 4 days. She contacted her primary care provider and was advised to go to the emergency room. She denies any cough, fevers or chills. ED Course: BP: 114/62, Pulse: 102, Resp: 18 (Non-Labored), Temp: 98.5 (Oral), Pain: 8, O2 sat: 99 on (Room Air), Time: 04/02/2020 10:20. Hospitalist ROS - Review of Systems Constitutional: denies: fever, chills, sweats, weakness, malaise Respiratory: denies: cough, shortness of breath, hemoptysis, SOB with excertion , pleuritic pain, wheezing Cardiovascular: reports: chest pain, light headedness. denies: palpitations, orthopnea, paroxysmal noc. dyspnea, edema Gastrointestinal: reports: nausea. denies: vomiting, abdominal pain, diarrhea, constipation, melena, hematochezia Musculoskeletal: denies: neck pain, shoulder pain, arm pain, back pain, hand pain, leg pain, foot pain Skin: denies: rash, lesions, mikki, bruising Neurological: denies: weakness, numbness, incoordination, change in speech, confusion, seizures - Medication Medications: Allergies: No known drug allergies. Current medications: Amiitriptyline oral WedApr 02, 2020 10:43 AMANDA Davalos Lauren TABLET : Strength - 25 mg : ORAL Patient Dose: 1 tab(s) Oral once a day (at bedtime). oxybutynin chloride oral WedApr 02, 2020 10:43 AMANDA Davalos Lauren TABLET, EXTENDED RELEASE 24 HR : Strength - 10 mg : ORAL Patient Dose: 1 tab(s) Oral once a day. cyclobenzaprine WedApr 02, 2020 10:43 AMANDA Davalos Lauren TABLET : Strength - 10 mg : ORAL Patient Dose: 3 times a day. Linzess WedApr 02, 2020 10:43 AMANDA Davalos Lauren CAPSULE : Strength - 290 mcg : ORAL Patient Dose: once a day. Premarin oral WedApr 02, 2020 10:43 AMANDA Davalos Lauren TABLET : Strength - 0.3 mg : ORAL Patient Dose: once a day (before a meal). pantoprazole oral WedApr 02, 2020 10:43 AMANDA Davalos Lauren tablet,delayed release (DR/EC) : Strength - 40 mg : ORAL Patient Dose: Unknown. zolpidem oral WedApr 02, 2020 10:44 AMANDA Davalos Lauren tablet : Strength - 10 mg : ORAL Patient Dose: once a day.PRN. citalopram WedApr 02, 2020 10:44 AMANDA Davalos Lauren tablet : Strength - 20 mg : ORAL Patient Dose: once a day. 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: Other (Guillain-Alcala syndrome in 2015) - Past Surgical History Past Surgical History: reports: Cholecystectomy, Hysterectomy, Tubal Ligation - Family History Family History: reports: cardiac disorder - Social History Smoking Status: Never smoker Alcohol: reports: None Drugs: reports: none Activity level: independent ambulation - Exam General Appearance: awake alert Eye: anicteric sclera ENT: moist mucosa Neck: supple Heart: RRR, no rubs Respiratory: CTAB Gastrointestinal: soft, non-tender Extremities: no cyanosis Skin: no rashes Psychiatric: normal affect, normal behavior, A&O x 3 Hospitalist Results - Labs Result Diagrams: 04/02/20 10:36 04/02/20 10:36 Lab results: WBC 8.0 thou/uL (4.8-10.8) 04/02/20 10:36 Hgb 13.4 g/dL (12.0-16.0) 04/02/20 10:36 Hct 40.3 % (36.0-47.0) 04/02/20 10:36 MCV 85.5 fL (78.0-98.0) 04/02/20 10:36 Plt Count 244 thou/uL (130-400) 04/02/20 10:36 Neutrophils % 46.1 % (42.0-75.0) 04/02/20 10:36 Sodium 140 mmol/L (136-145) 04/02/20 10:36 Potassium 3.5 mmol/L (3.5-5.1) 04/02/20 10:36 Chloride 103 mmol/L (98-107) 04/02/20 10:36 Carbon Dioxide 28 mmol/L (22-29) 04/02/20 10:36 BUN 15 mg/dL (7.0-18.7) 04/02/20 10:36 Creatinine 0.78 mg/dL (0.6-1.1) 04/02/20 10:36 Glucose 102 mg/dL (70-105) 04/02/20 10:36 Calcium 9.3 mg/dL (7.8-10.44) 04/02/20 10:36 Total Bilirubin 0.6 mg/dL (0.2-1.2) 04/02/20 10:36 AST 33 U/L (5-34) 04/02/20 10:36 ALT 42 U/L (8-55) 04/02/20 10:36 Alkaline Phosphatase 92 U/L (40-110) 04/02/20 10:36 Troponin I Less than 0.010 ng/mL (< 0.028) 04/02/20 10:36 Serum Total Protein 7.1 g/dL (6.0-8.3) 04/02/20 10:36 Albumin 4.2 g/dL (3.5-5.0) 04/02/20 10:36 - EKG Interpretation EKG: EKG shows normal sinus rhythm with incomplete right bundle branch block. - Radiology Interpretation Chest x-ray Additional Comment: Nil acute Hospitalist H&P A/P - Problem (1) Chest pain Code(s): R07.9 - CHEST PAIN, UNSPECIFIED Status: Acute (2) H/O Guillain-[place] syndrome Code(s): Z86.69 - PERSONAL HISTORY OF DIS OF THE NERVOUS SYS AND SENSE ORGANS Status: Chronic - Plan Plan: Troponin is negative. Admit to telemetry on observation status, trend troponins. Check stress test. Further management depending on outcome of the stress test. Patient had Guillain-Alcala syndrome in 2015, nil acute. Level of risk: Moderate. Level of complexity: Moderate. Estimated length of stay in the hospital: Less than 2 midnights
[2020-04-02 13:49] VITALS: BMI 33.1
[2020-04-02] MEDS ORDERED: Morphine 2 MG/ML VIAL SLOW IVP PRN (14:14)
[2020-04-02 14:34] LABS: Troponin I 0.015 ng/mL (< 0.028)
[2020-04-02 17:00] LABS: Troponin I Less than 0.010 ng/mL (< 0.028)
[2020-04-02] MEDS ORDERED: Acetaminophen 325 MG TAB PO PRN (19:57)
[2020-04-02] MEDS ORDERED: Zolpidem Tartrate 5 MG TAB PO PRN (19:57)
[2020-04-02] MEDS ORDERED: Cyclobenzaprine 10 MG TAB PO PRN ×2 (20:41→20:48)
--- NOTE | 2020-04-02 20:48 | PDOC.EVN ---
Event Note - Event Note Event Note: Notified by RN, patient complaining of 5/10 substernal chest pain. Patient seen and examined. She is in no acute distress. Describes the pain as a substernal pressure that is constant. It was a 3/10 in severity, then she got up to go to the bathroom and it increased to 5/10. It has not eased since she got back into bed. Refusing Morphine. Systolic BP is in the 110s. Patient states she has had this pain for several days. Tends to occur with exertion, also has associated dyspnea on exertion. No hx of CHF. Denies hemoptysis. No leg pain or swelling. Awaiting 2nd part of stress test which is scheduled for tomorrow morning. She states she has had diffuse pains associated with GB in the past. Previously took ibuprofen for similar pain but was told not to take it while she was on steroids, which she has completed now. Also reports spasming sensation in the left side of her neck. She takes Flexeril at home. EKG repeated, NSR. Will check trop x 2, mg+, BNP and d-dimer. Restarted Flexeril at lower dose of 5 mg TID PRN. Will give GI cocktail and norco 1 tab x 1 for pain. Day team to decide if Echo indicated. Continue to monitor.
[2020-04-02] MEDS ORDERED: Lidocaine 2% Viscous Solution 10 ML, Aluminum & Magnesium Hydroxide 30 ML SSW SCH (21:00)
[2020-04-02] MEDS ORDERED: Amitriptyline HCl 25 MG TAB PO SCH (21:00)
[2020-04-02] MEDS ORDERED: HYDROcodone/Acetaminophen 5/325 mg Tablet PO SCH (21:00)
[2020-04-02] MEDS: Pregabalin 50 MG CAP PO SCH (21:07)
[2020-04-02] MEDS ORDERED: Sodium Chloride 0.45% 500 ML IV SCH (23:45)
[2020-04-02] MEDS ORDERED: Ibuprofen 200 MG TAB PO SCH (23:45)
[2020-04-03 04:46] LABS: #Basophils 0.1 thou/uL (0.0-0.2); #Eosinphils 0.2 thou/uL (0.0-0.7); #Monocytes 0.5 thou/uL (0.11-0.59); #Neutrophils 3.7 thou/uL (1.40-6.50); %Basophils 1.1 % (0.0-1.0); %Eosinophils 2.1 % (0.0-10.0); %Lymphocytes 40.8 % (21.0-51.0); %Monocytes 6.1 % (0.0-10.0); %Neutrophils 49.9 % (42.0-75.0); Mean Corpuscular HGB CONC 34.2 g/dL (32.0-36.0); Mean Corpuscular Hemoglobin 29.7 pg (27.0-31.0); Mean Corpuscular Volume 86.7 fL (78.0-98.0); Mean Platelet Volume 7.6 fL (7.4-10.4); Platelet Count 202 thou/uL (130-400); RBC Distribution Width 12.2 % (11.5-14.5); Red Blood Cell (RBC) Count 4.06 mill/uL (4.20-5.40); White Blood Cell (WBC) Count 7.4 thou/uL (4.8-10.8)
[2020-04-03 05:06] LABS: Anion Gap 10 mmol/L (10-20); BUN (Urea Nitrogen) 15 mg/dL (7.0-18.7); Calc. Creatinine Clearance 130 mL/min (70-130); Calcium 8.3 mg/dL (7.8-10.44); Carbon Dioxide 26 mmol/L (22-29); Chloride 104 mmol/L (98-107); Cholesterol 179 mg/dl (< 200 Desired); Estimated GFR-MDRD 89; Glucose 91 mg/dL (70-105); HDL Cholesterol 60 mg/dL (>60 Neg Risk); LDL Cholesterol, Calculated 102 mg/dL; Potassium 4.3 mmol/L (3.5-5.1); Sodium 136 mmol/L (136-145); Triglycerides 86 mg/dL (Less than 150)
[2020-04-03] MEDS: Pregabalin 50 MG CAP PO SCH (08:06)
[2020-04-03] MEDS ORDERED: Aspirin 325 mg Enteric Coated Tablet PO SCH (09:00)
[2020-04-03] MEDS ORDERED: Senokot S 8.6-50 MG TAB PO SCH ×2 (10:00→21:00)
[2020-04-03] MEDS ORDERED: ADENOSINE 60 MG/20 ML VIAL ONE (11:06)
[2020-04-03] MEDS ORDERED: Acetaminophen 325 MG TAB PO PRN (11:09)
[2020-04-03] MEDS ORDERED: Citalopram 20 MG TAB PO SCH (11:15)
[2020-04-03 11:32] VITALS: BP 110/62; TEMP 97.5
--- NOTE | 2020-04-03 12:53 | NM ---
EXAM: CARDIAC SPECT HISTORY: Chest pain TECHNIQUE: A myocardial perfusion scan was performed using the single isotope 2 day day protocol with technetium 99m sestamibi. [30 mCi] was injected intravenously for the rest exam followed by 30 mCi for the stress study. Pharmacologic stress with adenosine was monitored and interpreted by Vanessa Posada FINDINGS: Homogeneous tracer distribution is seen in the myocardial segments on stress and rest image s without fixed or reversible defects. Gated SPECT LVEF: 70% Wall motion exam: Normal IMPRESSION: Normal myocardial perfusion scan
[2020-04-03 13:03] LABS: SARS-CoV-2 MS2 Positive; SARS-CoV-2 N Gene Negative; SARS-CoV-2 S Gene Negative; SARS-CoV-2 by NAA Not Detected (NotDetected); SARS-CoV-2 orf1ab Negative
--- NOTE | 2020-04-03 20:53 | EKG ---
Test Reason : Blood Pressure : / mmHG Vent. Rate : 080 BPM Atrial Rate : 080 BPM P-R Int : 152 ms QRS Dur : 096 ms QT Int : 370 ms P-R-T Axes : 046 -19 040 degrees QTc Int : 426 ms Normal sinus rhythm Normal ECG Confirmed by Nathan ROJAS ([id number]) on 04/03/2020 8:53:22 PM Referred By: LISSETTE Confirmed By:Nathan ROJAS
--- NOTE | 2020-04-04 01:40 | DIS ---
DATE OF ADMISSION: 04/02/2020 DATE OF DISCHARGE: 04/03/2020 PRIMARY CARE PROVIDER: Dr. Latonia Russell. DISCHARGE DIAGNOSES: 1. Chest pain, most likely secondary to musculoskeletal etiology. 2. COVID-19 test negative. CONDITION OF PATIENT ON THE DAY OF DISCHARGE: Stable. I assessed Ms. Virk on the day of discharge. She denies any chest pain or shortness of breath. Vital signs are stable. S1 and S2 are heard, regular. Lungs are clear to auscultation bilaterally. HOSPITAL COURSE: Ms. Virk is a pleasant 44-year-old lady, who was admitted to [facility] on April 02, 2020, for chest pain. Pulmonary embolism was ruled out with a negative D-dimer. She had a nuclear stress test, which was normal. Her chest pain resolved, and she is being discharged home in a stable condition. Gated SPECT LVEF was 70%. On the day of discharge, her white count is 7400, hemoglobin 12, and platelet count 202,000. Chem-7 is normal. TSH was normal at 1.1382. Fasting lipid profile showed triglycerides 86, cholesterol 179, LDL cholesterol 102, and HDL cholesterol 60. BNP was less than 10. COVID PCR test was negative. Many thanks for allowing me to participate in your patient's care. Please feel free to contact me with any questions or concerns. Post acute care followup: With primary care provider in 3 days. DIET: Heart healthy. ACTIVITY: No restrictions. DISCHARGE DESTINATION: Home. Job ID: [id number]
[2020-04-04] MEDS ORDERED: Non-Formulary Item 1 EACH (Omeprazole [Omeprazole] 20 MG) PO SCH (09:00)
[2020-04-04] MEDS ORDERED: Cholecalciferol 1,000 UNITS (25 MCG) TAB PO SCH (09:00)
[2020-04-04] MEDS ORDERED: Citalopram 20 MG TAB PO SCH (09:00)
[2020-04-04] MEDS ORDERED: Estrogens, Conjugated 0.3 MG TAB PO SCH (09:00)
[2020-04-04] MEDS ORDERED: Oxybutynin ER 5 MG TAB PO SCH (09:00)
[2020-04-04] MEDS ORDERED: Linaclotide [Linzess] 145 MCG PO SCH (09:00)
--- NOTE | 2020-04-06 13:46 | EKG ---
Test Reason : Blood Pressure : / mmHG Vent. Rate : 099 BPM Atrial Rate : 099 BPM P-R Int : 138 ms QRS Dur : 100 ms QT Int : 334 ms P-R-T Axes : 142 -27 134 degrees QTc Int : 428 ms Unusual P axis, possible ectopic atrial rhythm Incomplete right bundle branch block Nonspecific T wave abnormality Abnormal ECG Confirmed by MURALI Pratt, DERICK ([id number]), order editor LOIS GRANT ([id number]) on 04/06/2020 1:46:13 PM Referred By: Confirmed By:DERICK CARRION M.D.
== END 2020-04-03 15:35 | disposition home or self-care (01) ==
LOC: ERS 10:19 → 2SW 12:05
PROVIDERS: ADMIT Internal Medicine; ATTEND Internal Medicine
DX: R07.2 Precordial pain (principal); Z20.828 Contact with and (suspected) exposure to other viral communicable diseases; Z79.899 Other long term (current) drug therapy; Z86.69 Personal history of other diseases of the nervous system and sense organs
CPT/HCPCS: 36415; 71045; 78452; 80048; 80053; 80061; 83735; 83880; 84443; 84484; 84703; 85025; 85379; 87635; 93005; 93010; 93017; 94760; 96360; 96361; 96374; A9500; G0378; J0153; J2270; U0003

== ENCOUNTER 2020-04-25 14:15 | Observation (INO) | payer OTHER ==
[2020-04-25 15:07] LABS: #Basophils 0.1 thou/uL (0.0-0.2); #Eosinphils 0.1 thou/uL (0.0-0.7); #Lymphocytes 2.6 thou/uL (1.20-3.40); #Monocytes 0.3 thou/uL (0.11-0.59); #Neutrophils 2.2 thou/uL (1.40-6.50); %Basophils 1.4 % (0.0-1.0); %Eosinophils 2.4 % (0.0-10.0); %Lymphocytes 48.1 % (21.0-51.0); %Monocytes 6.2 % (0.0-10.0); %Neutrophils 41.9 % (42.0-75.0); Hemoglobin 12.8 g/dL (12.0-16.0); Mean Corpuscular HGB CONC 33.9 g/dL (32.0-36.0); Mean Corpuscular Hemoglobin 28.6 pg (27.0-31.0); Mean Corpuscular Volume 84.3 fL (78.0-98.0); Mean Platelet Volume 7.8 fL (7.4-10.4); Platelet Count 253 thou/uL (130-400); RBC Distribution Width 11.7 % (11.5-14.5); Red Blood Cell (RBC) Count 4.48 mill/uL (4.20-5.40); White Blood Cell (WBC) Count 5.4 thou/uL (4.8-10.8)
[2020-04-25 15:33] LABS: ALT (SGPT) 20 U/L (8-55); AST (SGOT) 23 U/L (5-34); Albumin 4.1 g/dL (3.5-5.0); Alkaline Phosphatase 95 U/L (40-110); Anion Gap 13 mmol/L (10-20); BUN (Urea Nitrogen) 12 mg/dL (7.0-18.7); Bilirubin, Total 0.3 mg/dL (0.2-1.2); CK (CPK) 108 U/L (29-168); Calc. Creatinine Clearance 0 mL/min (70-130); Calcium 8.9 mg/dL (7.8-10.44); Carbon Dioxide 25 mmol/L (22-29); Chloride 106 mmol/L (98-107); Estimated GFR-MDRD 82; Globulin 2.7 g/dL (2.4-3.5); Glucose 102 mg/dL (70-105); Potassium 3.7 mmol/L (3.5-5.1); Protein, Total 6.8 g/dL (6.0-8.3); Sodium 140 mmol/L (136-145)
[2020-04-25] MEDS ORDERED: Aspirin Chewable 81 MG TAB ONE (16:36)
[2020-04-25] MEDS ORDERED: Morphine 4 MG/ML VIAL ONE (16:36)
--- NOTE | 2020-04-25 16:49 | RAD ---
CHEST: Date: 04/25/2020 COMPARISON: 04/02/2020. HISTORY: Chest pain for 3 weeks. FINDINGS: Single view of the chest shows a normal sized cardiomediastinal silhouette. There may be a subtle inf iltrate in the right lower lobe. No pleural effusion is seen. IMPRESSION: Possible subtle early right lower lobe infiltrate. POS: EAA
[2020-04-25] MEDS ORDERED: Nitroglycerin 2% Ointment 1 INCH/1 GM Packet ONE (16:50)
[2020-04-25 16:51] LABS: BHCG - Serum Negative (NEGATIVE); Pregs Control Background? CLEAR/WHITE (CLR/WHITE); Pregs Control Bar Appear? YES (CONTROL BAR)
--- NOTE | 2020-04-25 18:04 | PDOC.HHP ---
Hospitalist HPI - History of Present Illness chest pain History of Present Illness: PCP: Latonia Russell Patient is a 44-year-old female with a past medical history significant for Geri Alcala and GERD that presents to the emergency department for the above complaint. The patient was discharged from our hospital on 04/03/2020 for a similar complaint of chest pain. She underwent a Nuclear medication cardiac s tress test, which was normal with LVEF 70%, d-dimer negative, COVID test negative. Her symptoms were thought to be related to musculoskeletal pain. Today, the patient presents for continuation of chest pain. She reports for the past 3 weeks she has been experiencing intermittent chest pain, located left side of her chest and sometimes to the midsternum, radiates to the left upper extremity, described as pressure, and stabbing at times, exacerbated with deep inhalation, relieved by nothing. She reports some dyspnea on exertion. She denies any heart palpitations or swelling to her lower extremities. She denies any abdominal pain, nausea, vomiting, diarrhea. She has no known sick contacts. She has no history of DVT/PE. No history of COPD/asthma. No history of smoking or illicit drug use. She has no cardiac risk factors. ED Course: VITAL SIGNS Denise Apr 25, 2020 14:16 AMANDA Everett Jessica BP: 123/80, MAP: 97, Pulse: 83, Resp: 17 (Non-Labored), Temp: 97.9 (Oral), Pain: 5, O2 sat: 99 on (Room Air), Time: 04/25/2020 14:16. VITAL SIGNS Denise Apr 25, 2020 16:35 AMANDA Jon Jennifer BP: 123/80, MAP: 95, Pulse: 83, Resp: 17 (Non-Labored), Temp: 98.4 (Oral), Pain: 3, O2 sat: 100 on (Room Air), Time: 04/25/2020 16:35. Medication administration: Nitro-Bid transdermal 1 inch Topical Given 16:52 04/25/2020 Aspirin Low Dose 324 mg Oral Given 16:45 04/25/2020 morphine injection 4 mg IV Push Given 16:38 04/25/2020 Hospitalist ROS - Review of Systems All other systems reviewed; all pertinent +/- noted in HPI/Subj - Medication Medications: amitriptyline oral Denise Apr 25, 2020 14:28 AMANDA Jon Jennifer TABLET : Strength - 25 mg : ORAL Patient Dose: 1 tab(s) Oral once a day (at bedtime). oxybutynin chloride [facility] Apr 25, 2020 14:28 AMANDA Jon Jennifer TABLET, EXTENDED RELEASE 24 HR : Strength - 10 mg : ORAL Patient Dose: 1 tab(s) Oral once a day. cyclobenzaprine [facility] Apr 25, 2020 14:28 AMANDA Jon Jennifer TABLET : Strength - 10 mg : ORAL Patient Dose: 3 times a day. Linzess Denise Apr 25, 2020 14:28 AMANDA Jon Jennifer CAPSULE : Strength - 290 mcg : ORAL Patient Dose: once a day. Premarin oral Denise Apr 25, 2020 14:28 AMANDA Jon Jennifer TABLET : Strength - 0.3 mg : ORAL Patient Dose: once a day (before a meal). pantoprazole oral [facility] Apr 25, 2020 14:28 AMANDA Jon Jennifer tablet,delayed release (DR/EC) : Strength - 40 mg : ORAL Patient Dose: Unknown. zolpidem oral Denise Apr 25, 2020 14:28 AMANDA Jon Jennifer tablet : Strength - 10 mg : ORAL Patient Dose: once a day.PRN. citalopram Denise Apr 25, 2020 14:28 AMANDA Jon Jennifer tablet : Strength - 20 mg : ORAL Patient Dose: once a day. cephALEXin Denise Apr 25, 2020 14:28 AMANDA Jon Jennifer capsule : Strength - 500 mg : ORAL Patient Dose: Unknown. Lyrica Denise Apr 25, 2020 14:29 AMANDA Jon Jennifer capsule : Strength - 100 mg : ORAL Patient Dose: UNK mg Oral 2 times a day. 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 denies: respiratory disorder - Social History Smoking Status: Never smoker Alcohol: reports: None Drugs: reports: none Living Situation: With Family Activity level: independent ambulation - Exam General Appearance: NAD, awake alert Eye: anicteric sclera ENT: normocephalic atraumatic Neck: supple, symmetric, no JVD Heart: RRR, no murmur, no gallops, no rubs, normal peripheral pulses Respiratory: CTAB, no wheezes, no rales, no ronchi, normal chest expansion, no tachypnea Gastrointestinal: soft, non-tender, non-distended, normal bowel sounds, no bruit, no guarding, no rigidity Extremities: no cyanosis, no edema Skin: no rashes Neurological: no weakness, no focal deficits Musculoskeletal: normal tone, normal strength Psychiatric: normal affect, A&O x 3 Hospitalist Results - Labs Result Diagrams: 04/25/20 14:45 04/25/20 14:45 Lab results: WBC 5.4 thou/uL (4.8-10.8) 04/25/20 14:45 Hgb 12.8 g/dL (12.0-16.0) 04/25/20 14:45 Hct 37.8 % (36.0-47.0) 04/25/20 14:45 MCV 84.3 fL (78.0-98.0) 04/25/20 14:45 Plt Count 253 thou/uL (130-400) 04/25/20 14:45 Neutrophils % 41.9 % (42.0-75.0) L 04/25/20 14:45 Sodium 140 mmol/L (136-145) 04/25/20 14:45 Potassium 3.7 mmol/L (3.5-5.1) 04/25/20 14:45 Chloride 106 mmol/L (98-107) 04/25/20 14:45 Carbon Dioxide 25 mmol/L (22-29) 04/25/20 14:45 BUN 12 mg/dL (7.0-18.7) 04/25/20 14:45 Creatinine 0.76 mg/dL (0.6-1.1) 04/25/20 14:45 Glucose 102 mg/dL (70-105) 04/25/20 14:45 Calcium 8.9 mg/dL (7.8-10.44) 04/25/20 14:45 Total Bilirubin 0.3 mg/dL (0.2-1.2) 04/25/20 14:45 AST 23 U/L (5-34) 04/25/20 14:45 ALT 20 U/L (8-55) 04/25/20 14:45 Alkaline Phosphatase 95 U/L (40-110) 04/25/20 14:45 Creatine Kinase 108 U/L (29-168) 04/25/20 14:45 Troponin I Less than 0.010 ng/mL (< 0.028) 04/25/20 14:45 Serum Total Protein 6.8 g/dL (6.0-8.3) 04/25/20 14:45 Albumin 4.1 g/dL (3.5-5.0) 04/25/20 14:45 D-dimer 0.41 - EKG Interpretation EKG: Sinus rhythm, PVCs, right bundle magdy block, LVH, no ST elevations - Radiology Interpretation Chest x-ray Status: report reviewed by me Additional Comment: Right lower lobe infiltrate. Hospitalist H&P A/P - Problem (1) Chest pain Code(s): R07.9 - CHEST PAIN, UNSPECIFIED Status: Acute (2) Right lower lobe pulmonary infiltrate Code(s): R91.8 - OTHER NONSPECIFIC ABNORMAL FINDING OF LUNG FIELD Status: Acute (3) GERD (gastroesophageal reflux disease) Code(s): K21.9 - GASTRO-ESOPHAGEAL REFLUX DISEASE WITHOUT ESOPHAGITIS Status: Chronic (4) Insomnia Code(s): G47.00 - INSOMNIA, UNSPECIFIED Status: Chronic (5) Overactive bladder Code(s): N32.81 - OVERACTIVE BLADDER Status: Chronic (6) H/O Guillain-[place] syndrome Code(s): Z86.69 - PERSONAL HISTORY OF DIS OF THE NERVOUS SYS AND SENSE ORGANS Status: Chronic (7) Depression Code(s): F32.9 - MAJOR DEPRESSIVE DISORDER, SINGLE EPISODE, UNSPECIFIED Status: Chronic - Plan Plan: 44/F with PMH of GERD and Ha Alcala presents for chest pain. Admit telemetry floor, observation status. Expected length of stay less than 2 midnights. EKG sinus rhythm, PVCs, RBBB, LVH. CXR right lower lobe infiltrate. Troponin negative, d-dimer 0.41. #Chest pain Heart score 0, Wells PE score 0. 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 Trend troponins, check lipase, TSH, mag level, BNP, UA. Recent FLP: Unremarkable Continue aspirin, Nitropaste. Echocardiogram N.p.o. midnight. #Right lower lobe pulmonary infiltrate Patient reported pleuritic chest pain. Afebrile, WBCs unremarkable COVID -04/14. CURB-65 score 0. Start azithromycin and Rocephin IVPB. Repeat CXR in a.m. #GERD Protonix daily. #Insomnia Takes Ambien as needed nightly at home. We will add Ambien as needed. #Overactive bladder Takes home oxybutynin. We will restart home medication. #History of Guillain-Alcala syndrome Reports receiving Botox injections every 3 months. Takes cyclobenzaprine at home. We will restart patient's home dose of cyclobenzaprine. #Depression Denies SI/HI. Takes amitriptyline, citalopram, Lyrica at home. Restart home medications. SCDs for DVT prophylaxis. Protonix for GI prophylaxis. Full code. Does need a medical decision-maker is her daughter Ashley at [phone]. Discussed case with Dr. Reyes
[2020-04-25] MEDS ORDERED: Nitroglycerin 0.4 MG TAB (25 Tab Bottle) SL PRN (19:06)
[2020-04-25] MEDS ORDERED: Calcium Carbonate 500 MG ChewTAB PO PRN (19:12)
[2020-04-25] MEDS ORDERED: Ondansetron ODT 4 MG TAB PO PRN (19:12)
[2020-04-25] MEDS ORDERED: Senokot S 8.6-50 MG TAB PO PRN (19:12)
[2020-04-25] MEDS ORDERED: Ondansetron PF 4 MG/2 ML Vial IVP PRN (19:12)
[2020-04-25] MEDS ORDERED: Cyclobenzaprine 10 MG TAB PO PRN (19:16)
[2020-04-25] MEDS ORDERED: Guaifenesin DM 100-10/5 ML UDCUP PO PRN (19:18)
[2020-04-25 19:57] LABS: Magnesium 1.9 mg/dL (1.6-2.6)
[2020-04-25] MEDS ORDERED: Azithromycin 500 MG in Sodium Chloride 0.9% 250 ML 250 ML IVPB SCH (20:00)
[2020-04-25 20:02] LABS: Troponin I Less than 0.010 ng/mL (< 0.028)
[2020-04-25 20:27] VITALS: BMI 33.3
[2020-04-25] MEDS ORDERED: Magnesium 2 GM/50 ML 2 GM in Premix Bag 1 BAG IVPB SCH (20:30)
[2020-04-25] MEDS: Morphine 2 MG/ML VIAL SLOW IVP PRN (20:35)
[2020-04-25] MEDS: Amitriptyline HCl 25 MG TAB PO SCH (20:39)
[2020-04-25] MEDS: Pregabalin 50 MG CAP PO SCH (20:40)
[2020-04-25] MEDS ORDERED: cefTRIAXone\\ROCEPHIN 1 GM in Sodium Chloride 0.9% 100 ML IVPB SCH (21:00)
[2020-04-25] MEDS: Zolpidem Tartrate 5 MG TAB PO PRN (22:03)
[2020-04-25] MEDS ORDERED: Oxybutynin ER 5 MG TAB PO SCH (22:15)
[2020-04-25 22:18] LABS: Troponin I Less than 0.010 ng/mL (< 0.028)
[2020-04-25] MEDS: Nitroglycerin 2% Ointment 1 INCH/1 GM Packet TOP SCH (23:21)
[2020-04-26] MEDS: Acetaminophen 325 MG TAB PO PRN ×2 (03:24→16:45)
[2020-04-26 04:09] LABS: #Eosinphils 0.1 thou/uL (0.0-0.7); #Lymphocytes 1.7 thou/uL (1.20-3.40); #Monocytes 0.5 thou/uL (0.11-0.59); #Neutrophils 5.9 thou/uL (1.40-6.50); %Basophils 0.2 % (0.0-1.0); %Eosinophils 0.9 % (0.0-10.0); Hemoglobin 11.5 g/dL (12.0-16.0); Mean Corpuscular HGB CONC 34.4 g/dL (32.0-36.0); Mean Corpuscular Hemoglobin 29.1 pg (27.0-31.0); Mean Corpuscular Volume 84.4 fL (78.0-98.0); Mean Platelet Volume 7.9 fL (7.4-10.4); Platelet Count 227 thou/uL (130-400); RBC Distribution Width 11.6 % (11.5-14.5); Red Blood Cell (RBC) Count 3.94 mill/uL (4.20-5.40); White Blood Cell (WBC) Count 8.2 thou/uL (4.8-10.8)
[2020-04-26 04:26] LABS: Anion Gap 9 mmol/L (10-20); BUN (Urea Nitrogen) 12 mg/dL (7.0-18.7); Calc. Creatinine Clearance 143 mL/min (70-130); Calcium 8.2 mg/dL (7.8-10.44); Carbon Dioxide 24 mmol/L (22-29); Chloride 106 mmol/L (98-107); Estimated GFR-MDRD Greater than 90; Glucose 96 mg/dL (70-105); Potassium 4.1 mmol/L (3.5-5.1); Sodium 135 mmol/L (136-145)
[2020-04-26 06:07] LABS: Bilirubin Negative (Negative); Blood, Urine Negative (Negative); Clarity Clear (Clear); Glucose, Urine (Dipstick) Normal (Negative); Ketone, Urine Negative (Negative); Leukocyte Negative Leu/uL (Negative); Nitrite Negative (Negative); Protein, Urine (Dipstick) Negative (Neg-Trace); RBC/HPF 0-3 HPF (0-3); Specific Gravity, Urine 1.017 (1.002-1.036); Urobilinogen Normal mg/dL (Less than 2); WBC/HPF 0-3 HPF (0-3); pH, Urine 7.5 (5.0-9.0)
[2020-04-26 06:08] LABS: Bacteria/HPF 1+ HPF (None Seen)
[2020-04-26] MEDS: Nitroglycerin 2% Ointment 1 INCH/1 GM Packet TOP SCH ×2 (07:07→18:55)
[2020-04-26] MEDS ORDERED: LINACLOTIDE PO SCH (07:30)
--- NOTE | 2020-04-26 08:18 | RAD ---
EXAM: Chest 2 views: HISTORY: Right lower lobe infiltrate COMPARISON: 04/25/2020 FINDINGS: There is a normal-sized cardiomediastinal silhouette. There is no evidence of consolidation, mass, or pleural effusion. The previously seen opacity in the right lower lobe has resolved and may have represented atelectasis. No acute osseous abnormality. IMPRESSION: No evidence of acute cardiopulmonary disease
[2020-04-26] MEDS: Morphine 2 MG/ML VIAL SLOW IVP PRN ×2 (08:35→20:53)
[2020-04-26] MEDS: Pregabalin 50 MG CAP PO SCH ×2 (08:36→20:50)
[2020-04-26] MEDS: Aspirin 81 mg Enteric Coated Tablet PO SCH (08:36)
[2020-04-26] MEDS: Estrogens, Conjugated 0.3 MG TAB PO SCH (08:36)
[2020-04-26] MEDS: Citalopram 20 MG TAB PO SCH (08:36)
[2020-04-26] MEDS: Cholecalciferol 1,000 UNITS (25 MCG) TAB PO SCH (08:37)
[2020-04-26 11:31] LABS: SARS-CoV-2 MS2 Positive; SARS-CoV-2 N Gene Negative; SARS-CoV-2 S Gene Negative; SARS-CoV-2 by NAA Not Detected (NotDetected); SARS-CoV-2 orf1ab Negative
[2020-04-26] MEDS ORDERED: Iopamidol 370 76% 100 ML VIAL ONE (12:29)
[2020-04-26] MEDS ORDERED: Communication Order-Pharmacy FS SCH (12:45)
--- NOTE | 2020-04-26 13:12 | PDOC.HOSPP ---
- Subjective Encounter Date: 04/26/20 Encounter Time: 09:00 Subjective: Patient seen and examined for chest discomfort. Continues to have dull precordial chest discomfort that improved with nitroglycerin patch. No nausea, vomiting, diaphoresis, palpitations or syncope. - Objective Vital Signs & Weight: Vital Signs (12 hours) Temp Pulse Resp BP Pulse Ox 04/26/20 07:30 98.0 F 91 16 102/59 L 99 04/26/20 03:24 97.8 F 87 16 107/61 100 Weight Weight 182 lb 3 oz I&O: 04/25/20 04/26/20 04/27/20 06:59 06:59 06:59 Intake Total 730 Balance 730 Result Diagrams: 04/26/20 03:52 04/26/20 03:52 Radiology Reviewed by me: Yes (Chest x-ray PA and lateral negative for infiltrate) EKG Reviewed by me: Yes (Sinus rhythm on telemetry) Hospitalist ROS - Review of Systems Respiratory: denies: cough, dry, shortness of breath, hemoptysis, SOB with excertion, pleuritic pain, sputum, wheezing, other Cardiovascular: reports: chest pain. denies: palpitations, orthopnea, paroxysmal noc. dyspnea, edema, light headedness, other Gastrointestinal: denies: nausea, vomiting, abdominal pain, diarrhea, constipation, melena, hematochezia, other - Medication Medications: Active Medications Generic Name Dose Route Start Last Admin Trade Name Freq PRN Reason Stop Dose Admin Acetaminophen 650 mg 04/25/20 19:12 04/26/20 03:24 Acetaminophen 325 Mg Tab PO 650 mg Q4H PRN Administration Headache/Fever/Mild Pain (1-3) Amitriptyline HCl 25 mg 04/25/20 21:00 04/25/20 20:39 Amitriptyline Hcl 25 Mg Tab PO 25 mg HS SHMUEL Administration Aspirin 81 mg 04/26/20 09:00 04/26/20 08:36 Aspirin 81 Mg Enteric Coated Tablet PO 81 mg DAILY SHMUEL Administration Cholecalciferol 2,000 units 04/26/20 09:00 04/26/20 08:37 Cholecalciferol 1,000 Units (25 Mcg) Tab PO 2,000 units DAILY SHMUEL Administration Citalopram Hydrobromide 20 mg 04/26/20 09:00 04/26/20 08:36 Citalopram 20 Mg Tab PO 20 mg DAILY SHMUEL Administration Cyclobenzaprine HCl 10 mg 04/25/20 19:16 04/25/20 22:03 Cyclobenzaprine 10 Mg Tab PO 10 mg TID PRN Administration Muscle Spasm Estrogens Conjugated 0.3 mg 04/26/20 09:00 04/26/20 08:36 Estrogens, Conjugated 0.3 Mg Tab PO 0.3 mg DAILY SHMUEL Administration Morphine Sulfate 2 mg 04/25/20 20:28 04/26/20 08:35 Morphine 2 Mg/Ml Vial SLOW IVP 2 mg Q4H PRN Administration Pain Nitroglycerin 0.5 inch 04/25/20 22:00 04/26/20 07:07 Nitroglycerin 2% Ointment 1 Inch/1 Gm Packet TOP 0.5 inch Q8HR SHMUEL Administration Pregabalin 50 mg 04/25/20 21:00 04/26/20 08:36 Pregabalin 50 Mg Cap PO 50 mg BID SHMUEL Administration Sodium Chloride 10 ml 04/25/20 19:06 04/25/20 23:09 Flush - Normal Saline 10 Ml Syringe IVF 10 ml PRN PRN Administration Saline Flush Vitamin E 200 units 04/26/20 09:00 04/26/20 08:36 Vitamin E 200 Units Cap PO 200 units DAILY SHMUEL Administration Zolpidem Tartrate 10 mg 04/25/20 19:30 04/25/20 22:03 Zolpidem Tartrate 5 Mg Tab PO 10 mg HS PRN Administration Insomnia - Exam General Appearance: NAD Neck: supple, no JVD Heart: RRR, no gallops, no rubs, normal peripheral pulses Respiratory: no wheezes, no rales, no ronchi, normal chest expansion, no tac hypnea Gastrointestinal: soft, non-tender, non-distended, normal bowel sounds, no guarding, no rigidity Extremities: no cyanosis, no clubbing Neurological: no new deficit Psychiatric: normal affect, A&O x 3 Hosp A/P (1) Chest pain Code(s): R07.9 - CHEST PAIN, UNSPECIFIED Status: Acute (2) GERD (gastroesophageal reflux disease) Code(s): K21.9 - GASTRO-ESOPHAGEAL REFLUX DISEASE WITHOUT ESOPHAGITIS Status: Chronic (3) Obesity (BMI 30.0-34.9) Code(s): E66.9 - OBESITY, UNSPECIFIED Status: Chronic (4) Anxiety Code(s): F41.9 - ANXIETY DISORDER, UNSPECIFIED Status: Acute (5) Electrolyte abnormality Code(s): E87.8 - OTH DISORDERS OF ELECTROLYTE AND FLUID BALANCE, NEC Status: Acute (6) Other issues per H&P Status: Acute - Plan DVT proph w/SCDs 43-year-old female with recent negative stress test and family history of heart disease presents with chest discomfort. Troponins were negative. Chest discomfort is nonreproducible. The pain partially improved with nitroglycerin patch. Patient continues to have chest discomfort at this time. Will keep her n.p.o. and consult cardiology. Repeat chest x-ray PA and lateral was negative for infiltrate. Antibiotics will be discontinued. We will continue Nitropatch. Continue aspirin. Echocardiogram pending.
--- NOTE | 2020-04-26 13:17 | CON ---
DATE OF CONSULTATION: 04/26/2020 REASON FOR CONSULTATION: Chest pain. HISTORY OF PRESENT ILLNESS: Ms. Virk is a 44-year-old woman with no significant past medical history, who recently presented with chest pain. This is her 2nd hospital admission for the above. She was also admitted one month ago for similar findings. She underwent a noninvasive stress study with normal LVEF and no ischemia. Her pain she states is intermittent. She is concerned about underlying coronary artery disease. She states she has radiation to her arm. Her CKs and troponins are negative. EKG is within normal limits. PAST MEDICAL HISTORY: acid reflux, hysterectomy. HOME MEDICATIONS: Include; 1. Amitriptyline. 2. Oxybutynin. 3. Cyclobenzaprine. 4. Linzess. 5. Premarin. 6. Pantoprazole. 7. Ambien. 8. Citalopram. 9. Lyrica. ALLERGIES: NONE. REVIEW OF SYSTEMS: A 10-point review of systems is reviewed and as above, otherwise negative. PHYSICAL EXAMINATION: GENERAL: Patient is a pleasant female, who is in no acute distress. The patient appears their stated age. VITAL SIGNS: Blood pressure 102/59, pulse 91, temp 98. NEUROLOGIC: The patient is alert and oriented x3 with no focal neurologic deficits. HEENT: Sclerae without icterus. Mouth has moist mucous membranes with normal pallor. NECK: No JVD. Carotid upstroke brisk. No bruits bilaterally. LUNGS: Clear to auscultation with unlabored respirations. BACK: No scoliosis or kyphosis. CARDIAC: Some reproducibility to her pain. ABDOMEN: Soft, nontender, nondistended. No peritoneal signs present. No hepatosplenomegaly. No abnormal striae. EXTREMITIES: 2+ femoral and 2+ dorsalis pedis pulses. No cyanosis, clubbing, or edema. SKIN: No gross abnormalities. PERTINENT LABORATORY DATA: As above including a hemoglobin of 11.5. Creatinine 0.65. Troponin negative. IMPRESSION: Atypical chest pain. RECOMMENDATIONS: Discussed symptoms with Ms. Virk. Her symptoms do not appear to be related to underlying coronary artery disease. She is very concerned about this being etiology of her heart. She would like to proceed with a more aggressive approach. Discussed coronary angiography in full detail with Ms. Virk. Risks include, but not limited to the following: I discussed the procedure in full detail with the patient. The risks of the procedure were also discussed. The risks of the procedure include but are not limited to the following: , stroke, MA, need for emergency surgery, loss of limb, bleeding, and infection, as well as a reaction to the dye causing kidney failure and needing long-term dialysis. I also discussed the risks of PCI to include all of the above including coronary dissection and perforation in addition to acute stent thrombosis and restenosis. All questions about the procedure were answered. Given the above, the patient agreed to proceed with coronary angiography and possible PCI. All questions were answered. Given the above, the patient agreed to proceed with above procedure. There are no contraindications to drug-coated stent placement if needed. Job ID: [id number]
[2020-04-26] MEDS ORDERED: Nitroglycerin 100MG/250ML BOT 250 ML ONE (13:20)
[2020-04-26] MEDS ORDERED: Heparin 10,000 UNITS/ 10 ML VIAL ONE (13:20)
[2020-04-26] MEDS ORDERED: Lidocaine 1% (PF) 30 ML VIAL ONE (13:20)
[2020-04-26] MEDS ORDERED: Verapamil 5 MG/2 ML VIAL ONE (13:20)
[2020-04-26] MEDS ORDERED: Iopamidol-370 76% 500 ML 1 ML ONE (13:30)
[2020-04-26] MEDS ORDERED: Fentanyl 100 MCG/2 ML VIAL ONE (13:53)
[2020-04-26] MEDS ORDERED: Midazolam HCl 2 mg/2 ml Vial ONE (13:53)
[2020-04-26] MEDS ORDERED: Sodium Chloride 0.9% 1,000 ML IV SCH (15:15)
--- NOTE | 2020-04-26 15:42 | DIS ---
DATE OF ADMISSION: 04/25/2020 DATE OF DISCHARGE: 04/26/2020 DISCHARGE DISPOSITION: Home. FOLLOWUP: Follow up with primary care physician Latonia Russell in 1 week. The patient was seen and examined on the day of discharge. Denies any new complaints. BRIEF HOSPITAL COURSE: The patient is a 44-year-old female, who presented to the emergency room yesterday evening with chest discomfort that improved with sublingual nitroglycerin. She was recently admitted at this facility and underwent a Cardiolite stress test that was negative. Please refer to the history and physical for further details. The patient was admitted to the hospital with a diagnosis of chest discomfort, rule out acute coronary syndrome. Serial troponins remained negative. Due to persistent chest discomfort, she was evaluated by Cardiology. She underwent a cardiac catheterization. Official report is pending at this time. No interventions were performed per RN. The patient will be discharged later today once cleared by Cardiology. FINAL DIAGNOSES: 1. Chest discomfort. 2. Gastroesophageal reflux disease. 3. Obesity with a BMI of 33.3. 4. Anxiety. 5. Electrolyte abnormality. 6. Hyponatremia. The patient understands the above plan of care. The patient was advised to follow up on the official cardiac catheterization report. Job ID: [id number]
--- NOTE | 2020-04-26 18:47 | CT ---
CTA CHEST: 04/26/20 Axial tomograms obtained with IV contrast following angio protocol. Multiplanar reconstruction and 3D postprocessing. INDICATIONS: Chest pain. Shortness of breath. Assess for pulmonary embolus. FINDINGS: There is streak artifact which obscures proximal right pulmonary arteries. However, there is loss of contrast in a right upper lobe pulmonary artery which is best appreciated on coronal image 65, 64 and 63. There is question loss of contrast in a left upper lobe pulmonary artery best seen on oblique im ages of the left pulmonary, series 403, image 53. Therefore, I cannot exclude small upper lobe pulmon juan emboli. There is no evidence of large central emboli and no other filling defect identified. The lungs are clear. There is no evidence of infiltrate or effusion. Thoracic aorta is unremarkable. Images through upper abdomen unremarkable. There is a cystic lesion in the anterior superior liver wh ich is stable from prior CT of 2019. IMPRESSION: Prominent artifact obscures the proximal pulmonary arteries. I cannot exclude small emboli in upper l obe pulmonary arteries as described above. Suggest anticoagulation and short term follow-up exam. Findings relayed to patient's nurse on 2N. Code CR POS: AGW
--- NOTE | 2020-04-26 18:49 | PDOC.EVN ---
Event Note - Event Note Event Note: CTA - cannot rule out PE Doppler BLE ordered
[2020-04-26] MEDS: Amitriptyline HCl 25 MG TAB PO SCH (20:50)
[2020-04-26] MEDS ORDERED: Oxybutynin ER 5 MG TAB PO SCH (21:00)
[2020-04-26] MEDS: Zolpidem Tartrate 5 MG TAB PO PRN (22:06)
[2020-04-27] MEDS: Cholecalciferol 1,000 UNITS (25 MCG) TAB PO SCH (09:27)
[2020-04-27] MEDS: Aspirin 81 mg Enteric Coated Tablet PO SCH (09:27)
[2020-04-27] MEDS: Citalopram 20 MG TAB PO SCH (09:28)
[2020-04-27] MEDS: Pregabalin 50 MG CAP PO SCH (09:28)
[2020-04-27] MEDS: Estrogens, Conjugated 0.3 MG TAB PO SCH (09:29)
[2020-04-27 12:16] VITALS: TEMP 98.5
[2020-04-27] MEDS: Acetaminophen 325 MG TAB PO PRN (12:53)
--- NOTE | 2020-04-27 13:36 | ULT ---
BILATERAL LOWER EXTREMITY VENOUS DUPLEX EXAM: 04/27/20 HISTORY: Left pain and swelling. Real time color Doppler evaluation of the right and left lower extremities were performed from groin to calf. This includes evaluation of the common femoral, superficial and profunda femoral, saphenous, popliteal, and posterior tibial veins. It shows patent deep venous systems bilaterally. There is nor mal compressibility and augmentation. There is no evidence of DVT. IMPRESSION: No evidence of DVT of either lower extremity. POS: OFF
--- NOTE | 2020-04-27 15:43 | DIS ---
DATE OF ADMISSION: 04/25/2020 DATE OF DISCHARGE: 04/27/2020 DISCHARGE DISPOSITION: Home. PRIMARY DISCHARGE DIAGNOSIS: Chest pain, which is noncardiac. SECONDARY DISCHARGE DIAGNOSES: Obesity, anxiety disorder, gastroesophageal reflux disease. PROCEDURES DONE DURING HOSPITALIZATION: Cardiac catheterization done on 04/26/[address] White showed no significant coronary artery disease. Ejection fraction was 50%. Ultrasound venous Doppler of lower extremities done showed no evidence of DVT. CT angio chest done showed no evidence of PE in major arteries. H and H of 11 and 33, platelet count 227. COVID-19 PCR was not detected . BUN 12, creatinine 0.6. Troponin x3 negative. BNP 10. TSH 1.82. Lipase was 30. BUN 12, creatinine 0.7. Serum test negative. D-dimer was 0.4. DISCHARGE MEDICATIONS: 1. Celexa 20 mg daily. 2. Oxybutynin extended release 10 mg daily. 3. Elavil 25 mg p.o. at bedtime. 4. Linaclotide 145 mcg p.o. daily. 5. Lyrica 50 mg twice daily. 6. Premarin 0.3 mg daily. 7. Protonix 40 mg p.o. daily. 8. Vitamin D3 of 2000 units p.o. daily. 9. Zolpidem 10 mg p.o. at bedtime p.r.n. for insomnia. ALLERGIES: NO KNOWN DRUG ALLERGIES. DISCHARGE PLAN: The patient to follow up with her primary care physician, Dr. Latonia Russell in 1 week. BRIEF COURSE DURING HOSPITALIZATION: The patient initially came to ER on 04/25/2020 with complaints of chest pain. She had a complete ACS evidence based protocol followed. She has had a recent nuclear stress test done on 04/03 during her admission on early part of March, which was negative. In view of this and recurrent chest pain, she has had consultation with Dr. White. Cardiac catheterization done showed no significant coronary artery disease. CT angio chest was negative. Ultrasound venous Doppler of lower extremities were negative for any DVT. She remained chest pain-free during her brief stay here. She is advised to follow up with her primary care physician in 1 week. Prior to discharge, she is ambulating and eating well. Job ID: [id number]
[2020-04-27 15:52] VITALS: BP 97/54
--- NOTE | 2020-05-01 13:07 | EKG ---
Test Reason : CHEST PAIN Blood Pressure : / mmHG Vent. Rate : 082 BPM Atrial Rate : 082 BPM P-R Int : 164 ms QRS Dur : 104 ms QT Int : 384 ms P-R-T Axes : 039 -22 018 degrees QTc Int : 448 ms Sinus rhythm with Premature ventricular complexes or Fusion complexes Incomplete right bundle branch block Minimal voltage criteria for LVH, may be normal variant Borderline ECG Confirmed by BURT SCHNEIDER ([id number]), manager editorial LOIS GRANT ([id number]) on 05/01/2020 1:07:21 PM Referred By: [id number] Confirmed By:BURT SCHNEIDER
== END 2020-04-27 16:20 | disposition home or self-care (01) ==
LOC: ERS 14:15 → INTOOBSV 18:11 → 2NO 18:11
PROVIDERS: ADMIT Student in an Organized Health Care Education/Training Program; ATTEND Student in an Organized Health Care Education/Training Program
PROC: 4A023N7 Measurement of Cardiac Sampling and Pressure, Left Heart, Percutaneous Approach (ICD-10-PCS; principal; 2020-04-26)
PROC: B2111ZZ Fluoroscopy of Multiple Coronary Arteries using Low Osmolar Contrast (ICD-10-PCS; principal; 2020-04-26)
DX: R07.89 Other chest pain (principal); E66.9 Obesity, unspecified; F41.9 Anxiety disorder, unspecified; K21.9 Gastro-esophageal reflux disease without esophagitis; E87.1 Hypo-osmolality and hyponatremia; G61.0 Guillain-Barre syndrome; F32.9 Major depressive disorder, single episode, unspecified; G47.00 Insomnia, unspecified; N32.81 Overactive bladder; R91.8 Other nonspecific abnormal finding of lung field; Z20.828 Contact with and (suspected) exposure to other viral communicable diseases; Z68.33 Body mass index [BMI] 33.0-33.9, adult; Z79.82 Long term (current) use of aspirin; Z79.899 Other long term (current) drug therapy
CPT/HCPCS: 36415; 71045; 71046; 71275; 80048; 80053; 81001; 82550; 83690; 83735; 83880; 84443; 84484; 84703; 85025; 85379; 87635; 93005; 93306; 93458; 93970; 94760; 96365; 96374; 96375; 96376; 99152; G0378; J0456; J0696; J1644; J2001; J2250; J2270; J3010; J3475; J3490; J7050; Q9967; U0003

== ENCOUNTER 2020-10-05 14:44 | Emergency (ER) | payer OTHER ==
[2020-10-05 15:28] LABS: #Basophils 0.1 thou/uL (0.0-0.2); #Eosinphils 0.1 thou/uL (0.0-0.7); #Lymphocytes 2.6 thou/uL (1.20-3.40); #Monocytes 0.5 thou/uL (0.11-0.59); #Neutrophils 5.2 thou/uL (1.40-6.50); %Basophils 0.8 % (0.0-1.0); %Eosinophils 1.5 % (0.0-10.0); %Lymphocytes 30.9 % (21.0-51.0); %Monocytes 6.3 % (0.0-10.0); %Neutrophils 60.5 % (42.0-75.0); Hemoglobin 12.7 g/dL (12.0-16.0); Mean Corpuscular HGB CONC 34.1 g/dL (32.0-36.0); Mean Corpuscular Hemoglobin 28.6 pg (27.0-31.0); Mean Corpuscular Volume 83.8 fL (78.0-98.0); Mean Platelet Volume 7.8 fL (7.4-10.4); Platelet Count 238 thou/uL (130-400); RBC Distribution Width 12.1 % (11.5-14.5); Red Blood Cell (RBC) Count 4.46 mill/uL (4.20-5.40); White Blood Cell (WBC) Count 8.5 thou/uL (4.8-10.8)
[2020-10-05 15:39] LABS: Bilirubin Negative (Negative); Blood, Urine Negative (Negative); Clarity Clear (Clear); Glucose, Urine (Dipstick) Normal (Negative); Ketone, Urine Negative (Negative); Leukocyte Negative Leu/uL (Negative); Nitrite Negative (Negative); Protein, Urine (Dipstick) Negative (Neg-Trace); Specific Gravity, Urine 1.017 (1.002-1.036); Urobilinogen Normal mg/dL (Less than 2); pH, Urine 6.5 (5.0-9.0)
[2020-10-05 15:42] LABS: BHCG - Serum Negative (NEGATIVE); Pregs Control Background? CLEAR/WHITE (CLR/WHITE); Pregs Control Bar Appear? YES (CONTROL BAR)
[2020-10-05 15:51] LABS: ALT (SGPT) 53 U/L (8-55); AST (SGOT) 32 U/L (5-34); Albumin 3.9 g/dL (3.5-5.0); Alkaline Phosphatase 115 U/L (40-110); Anion Gap 12 mmol/L (10-20); BUN (Urea Nitrogen) 15 mg/dL (7.0-18.7); Bilirubin, Total 0.3 mg/dL (0.2-1.2); Calc. Creatinine Clearance 0 mL/min (70-130); Calcium 8.8 mg/dL (7.8-10.44); Carbon Dioxide 26 mmol/L (22-29); Chloride 105 mmol/L (98-107); Globulin 2.9 g/dL (2.4-3.5); Glucose 126 mg/dL (70-105); Potassium 4.3 mmol/L (3.5-5.1); Protein, Total 6.8 g/dL (6.0-8.3); Sodium 139 mmol/L (136-145)
== END 2020-10-05 18:25 | disposition home or self-care (01) ==
LOC: ERS 14:44
DX: M54.5 Low back pain (principal); G47.00 Insomnia, unspecified; Z79.899 Other long term (current) drug therapy
CPT/HCPCS: 71045; 80053; 81003; 84703; 85025; 87086; 93005

== ENCOUNTER 2020-10-10 12:17 | Outpatient (CLI) | payer OTHER | END 2020-10-10 12:18 | disposition home or self-care (01) | LOC: SCSRAD 12:17 | PROVIDERS: ATTEND Physician Assistant | DX: M54.16 Radiculopathy, lumbar region (principal); M47.22 Other spondylosis with radiculopathy, cervical region; R30.0 Dysuria | CPT/HCPCS: 72040; 72100; 81001; 87086 ==

== ENCOUNTER 2021-06-25 09:59 | Outpatient (CLI) | payer OTHER | END 2021-06-25 10:00 | disposition home or self-care (01) | LOC: BICMAMMO 09:59 | PROVIDERS: ATTEND Physician Assistant | DX: Z12.31 Encounter for screening mammogram for malignant neoplasm of breast (principal) | CPT/HCPCS: 77063; 77067 ==

== ENCOUNTER 2022-04-14 20:01 | Inpatient (IN) | payer OTHER ==
[~2022-04-14 20:01] MED LIST: Heparin 1,000 UNITS/ML VIAL ONE
[2022-04-14] MEDS ORDERED: Ondansetron PF 4 MG/2 ML Vial IVP PRN (22:03)
[2022-04-14] MEDS ORDERED: Zolpidem Tartrate 5 MG TAB PO PRN (23:42)
[2022-04-15 00:17] VITALS: BMI 36.4
[2022-04-15] MEDS: Acetaminophen 325 MG TAB PO PRN ×2 (00:28→09:09)
[2022-04-15] MEDS: Meropenem 1 GM in Sodium Chloride 0.9% 100 ML IVPB SCH ×3 (03:00→17:57)
[2022-04-15] MEDS: Meclizine HCl 25 MG TAB PO SCH ×3 (06:23→20:00)
[2022-04-15 06:37] LABS: #Basophils 0.1 thou/uL (0.0-0.2); #Eosinphils 0.1 thou/uL (0.0-0.7); #Lymphocytes 2.3 thou/uL (1.20-3.40); #Monocytes 0.6 thou/uL (0.11-0.59); #Neutrophils 2.5 thou/uL (1.40-6.50); %Basophils 1.2 % (0.0-1.0); %Eosinophils 2.1 % (0.0-10.0); %Lymphocytes 41.7 % (21.0-51.0); %Monocytes 10.2 % (0.0-10.0); %Neutrophils 44.7 % (42.0-75.0); Hemoglobin 10.8 g/dL (12.0-16.0); Mean Corpuscular Hemoglobin 26.6 pg (27.0-31.0); Mean Corpuscular Volume 80.7 fL (78.0-98.0); Mean Platelet Volume 7.8 fL (7.4-10.4); Platelet Count 258 thou/uL (130-400); Red Blood Cell (RBC) Count 4.06 mill/uL (4.20-5.40); White Blood Cell (WBC) Count 5.5 thou/uL (4.8-10.8)
[2022-04-15 06:59] LABS: Anion Gap 11 mmol/L (10-20); BUN (Urea Nitrogen) 10 mg/dL (7.0-18.7); Calc. Creatinine Clearance 136 mL/min (70-130); Carbon Dioxide 26 mmol/L (22-29); Chloride 105 mmol/L (98-107); Estimated GFR 102; Glucose 88 mg/dL (70-105); Sodium 138 mmol/L (136-145)
[2022-04-15] MEDS: Cholecalciferol 1,000 UNITS (25 MCG) TAB PO SCH (08:36)
[2022-04-15] MEDS: Pregabalin 50 MG CAP PO SCH ×2 (08:36→20:00)
[2022-04-15] MEDS: Enoxaparin Sodium 40 MG/0.4 ML SYRINGE SC SCH (08:38)
[2022-04-15] MEDS: Estrogens, Conjugated 0.3 MG TAB PO SCH (08:38)
[2022-04-15] MEDS ORDERED: LINACLOTIDE PO SCH (09:00)
[2022-04-15] MEDS: Ibuprofen 200 MG TAB PO PRN (12:42)
[2022-04-15] MEDS ORDERED: ALPRAZolam 1 MG TAB PO PRN (12:49)
[2022-04-15] MEDS: Zolpidem Tartrate 5 MG TAB PO SCH (19:59)
[2022-04-15] MEDS: Amitriptyline HCl 25 MG TAB PO SCH (20:00)
[2022-04-16] MEDS: Meropenem 1 GM in Sodium Chloride 0.9% 100 ML IVPB SCH ×2 (02:21→08:18)
[2022-04-16] MEDS: Meclizine HCl 25 MG TAB PO SCH ×3 (06:00→20:06)
[2022-04-16 06:19] LABS: #Eosinphils 0.2 thou/uL (0.0-0.7); #Lymphocytes 2.7 thou/uL (1.20-3.40); #Monocytes 0.6 thou/uL (0.11-0.59); #Neutrophils 3.6 thou/uL (1.40-6.50); %Basophils 0.3 % (0.0-1.0); %Eosinophils 2.5 % (0.0-10.0); %Lymphocytes 38.3 % (21.0-51.0); %Monocytes 7.8 % (0.0-10.0); %Neutrophils 51.1 % (42.0-75.0); Hemoglobin 11.8 g/dL (12.0-16.0); Mean Corpuscular HGB CONC 33.3 g/dL (32.0-36.0); Mean Corpuscular Hemoglobin 26.7 pg (27.0-31.0); Mean Platelet Volume 8.1 fL (7.4-10.4); Platelet Count 258 thou/uL (130-400); RBC Distribution Width 13.3 % (11.5-14.5); Red Blood Cell (RBC) Count 4.41 mill/uL (4.20-5.40); White Blood Cell (WBC) Count 7.1 thou/uL (4.8-10.8)
[2022-04-16 06:30] LABS: ALT (SGPT) 29 U/L (8-55); AST (SGOT) 28 U/L (5-34); Albumin 3.6 g/dL (3.5-5.0); Alkaline Phosphatase 150 U/L (40-110); Anion Gap 15 mmol/L (10-20); BUN (Urea Nitrogen) 12 mg/dL (7.0-18.7); Bilirubin, Total 0.4 mg/dL (0.2-1.2); CRP (Inflammatory) 2.67 mg/dL (= or < 0.5); Calc. Creatinine Clearance 136 mL/min (70-130); Carbon Dioxide 20 mmol/L (22-29); Chloride 106 mmol/L (98-107); Estimated GFR 102; Globulin 3.4 g/dL (2.4-3.5); Glucose 87 mg/dL (70-105); Potassium 4.5 mmol/L (3.5-5.1); Sodium 136 mmol/L (136-145)
[2022-04-16] MEDS: Pregabalin 50 MG CAP PO SCH ×2 (08:58→20:06)
[2022-04-16] MEDS: Estrogens, Conjugated 0.3 MG TAB PO SCH (08:58)
[2022-04-16] MEDS: Ibuprofen 200 MG TAB PO PRN (08:59)
[2022-04-16] MEDS ORDERED: Ertapenem 1 GM in Sodium Chloride 0.9% 100 ML IVPB SCH (09:00)
[2022-04-16] MEDS: Cholecalciferol 1,000 UNITS (25 MCG) TAB PO SCH (09:06)
[2022-04-16] MEDS: Enoxaparin Sodium 40 MG/0.4 ML SYRINGE SC SCH (09:06)
[2022-04-16] MEDS: Acetaminophen 325 MG TAB PO PRN (15:06)
[2022-04-16] MEDS: Amitriptyline HCl 25 MG TAB PO SCH (20:06)
[2022-04-16] MEDS: Zolpidem Tartrate 5 MG TAB PO SCH (20:06)
[2022-04-17] MEDS: Meclizine HCl 25 MG TAB PO SCH ×3 (05:23→20:01)
[2022-04-17 07:48] LABS: Band 6 % (5-11); Eosinophils 1 % (0-10); Hemoglobin 11.8 g/dL (12.0-16.0); Lymphocytes 37 % (21-51); MDiff Complete? YES; Mean Corpuscular HGB CONC 33.8 g/dL (32.0-36.0); Mean Corpuscular Hemoglobin 27.3 pg (27.0-31.0); Mean Corpuscular Volume 80.8 fL (78.0-98.0); Metamyelocyte 1 % (0-0); Monocytes 6 % (0-10); Myelocyte 1 % (0-0); Neutrophil 47 % (42-75); Platelet Count 302 thou/uL (130-400); Platelet Morphology Comment Appears Adequate; RBC Morphology Normal; Reactive Lymphocytes 1 % (0-10); Red Blood Cell (RBC) Count 4.33 mill/uL (4.20-5.40); White Blood Cell (WBC) Count 7.7 thou/uL (4.8-10.8)
[2022-04-17 08:28] LABS: #Basophils 0.1 thou/uL (0.0-0.2); #Eosinphils 0.1 thou/uL (0.0-0.7); #Monocytes 0.6 thou/uL (0.11-0.59); #Neutrophils 4.4 thou/uL (1.40-6.50); %Eosinophils 1.7 % (0.0-10.0); %Lymphocytes 36.7 % (21.0-51.0); %Neutrophils 53.6 % (42.0-75.0); Hemoglobin 12.1 g/dL (12.0-16.0); Mean Corpuscular HGB CONC 33.5 g/dL (32.0-36.0); Mean Corpuscular Hemoglobin 26.8 pg (27.0-31.0); Mean Platelet Volume 7.3 fL (7.4-10.4); Platelet Count 310 thou/uL (130-400); RBC Distribution Width 13.2 % (11.5-14.5); Red Blood Cell (RBC) Count 4.52 mill/uL (4.20-5.40); White Blood Cell (WBC) Count 8.2 thou/uL (4.8-10.8)
[2022-04-17] MEDS: Ertapenem 1 GM in Sodium Chloride 0.9% 100 ML IVPB SCH (08:40)
[2022-04-17] MEDS: Pregabalin 50 MG CAP PO SCH ×2 (08:40→20:01)
[2022-04-17] MEDS: Cholecalciferol 1,000 UNITS (25 MCG) TAB PO SCH (08:40)
[2022-04-17] MEDS: Estrogens, Conjugated 0.3 MG TAB PO SCH (08:40)
[2022-04-17] MEDS: Ibuprofen 200 MG TAB PO PRN (08:41)
[2022-04-17] MEDS: Enoxaparin Sodium 40 MG/0.4 ML SYRINGE SC SCH (08:41)
[2022-04-17 08:49] LABS: ALT (SGPT) 30 U/L (8-55); AST (SGOT) 30 U/L (5-34); Albumin 3.9 g/dL (3.5-5.0); Alkaline Phosphatase 151 U/L (40-110); Anion Gap 15 mmol/L (10-20); BUN (Urea Nitrogen) 8 mg/dL (7.0-18.7); Bilirubin, Total 0.4 mg/dL (0.2-1.2); Calc. Creatinine Clearance 138 mL/min (70-130); Carbon Dioxide 26 mmol/L (22-29); Chloride 102 mmol/L (98-107); Estimated GFR 104; Globulin 3.4 g/dL (2.4-3.5); Glucose 94 mg/dL (70-105); Potassium 4.5 mmol/L (3.5-5.1); Protein, Total 7.3 g/dL (6.0-8.3); Sodium 138 mmol/L (136-145)
[2022-04-17] MEDS: Zolpidem Tartrate 5 MG TAB PO SCH (20:01)
[2022-04-17] MEDS: Amitriptyline HCl 25 MG TAB PO SCH (20:02)
[2022-04-18] MEDS: Meclizine HCl 25 MG TAB PO SCH ×2 (05:15→14:30)
[2022-04-18 06:17] LABS: #Eosinphils 0.2 thou/uL (0.0-0.7); #Lymphocytes 3.3 thou/uL (1.20-3.40); #Monocytes 0.4 thou/uL (0.11-0.59); #Neutrophils 4.7 thou/uL (1.40-6.50); %Basophils 0.3 % (0.0-1.0); %Eosinophils 2.2 % (0.0-10.0); %Monocytes 5.1 % (0.0-10.0); %Neutrophils 54.4 % (42.0-75.0); Mean Corpuscular HGB CONC 33.2 g/dL (32.0-36.0); Mean Corpuscular Hemoglobin 27.1 pg (27.0-31.0); Mean Corpuscular Volume 81.5 fL (78.0-98.0); Mean Platelet Volume 7.6 fL (7.4-10.4); Platelet Count 318 thou/uL (130-400); RBC Distribution Width 13.1 % (11.5-14.5); Red Blood Cell (RBC) Count 4.42 mill/uL (4.20-5.40); White Blood Cell (WBC) Count 8.6 thou/uL (4.8-10.8)
[2022-04-18 06:42] LABS: ALT (SGPT) 29 U/L (8-55); AST (SGOT) 27 U/L (5-34); Albumin 3.7 g/dL (3.5-5.0); Alkaline Phosphatase 140 U/L (40-110); Anion Gap 9 mmol/L (10-20); BUN (Urea Nitrogen) 10 mg/dL (7.0-18.7); Bilirubin, Total 0.2 mg/dL (0.2-1.2); Calc. Creatinine Clearance 142 mL/min (70-130); Calcium 9.2 mg/dL (7.8-10.44); Carbon Dioxide 30 mmol/L (22-29); Chloride 102 mmol/L (98-107); Estimated GFR 107; Globulin 3.3 g/dL (2.4-3.5); Glucose 91 mg/dL (70-105); Phosphorus 3.2 mg/dL (2.3-4.7); Potassium 4.1 mmol/L (3.5-5.1); Sodium 137 mmol/L (136-145)
[2022-04-18] MEDS: Estrogens, Conjugated 0.3 MG TAB PO SCH (08:37)
[2022-04-18] MEDS: Pregabalin 50 MG CAP PO SCH ×2 (08:38→21:09)
[2022-04-18] MEDS: Enoxaparin Sodium 40 MG/0.4 ML SYRINGE SC SCH (08:38)
[2022-04-18] MEDS: Cholecalciferol 1,000 UNITS (25 MCG) TAB PO SCH (08:38)
[2022-04-18] MEDS: Ertapenem 1 GM in Sodium Chloride 0.9% 100 ML IVPB SCH (08:54)
[2022-04-18] MEDS ORDERED: Meclizine HCl 25 MG TAB PO PRN (14:10)
[2022-04-18] MEDS: Ibuprofen 200 MG TAB PO PRN (18:33)
[2022-04-18] MEDS: Saccharomyces boulardii 250 MG CAP PO SCH (21:09)
[2022-04-18] MEDS: Amitriptyline HCl 25 MG TAB PO SCH (21:09)
[2022-04-18] MEDS: Zolpidem Tartrate 5 MG TAB PO SCH (21:10)
[2022-04-19] MEDS: Pregabalin 50 MG CAP PO SCH ×2 (08:55→20:33)
[2022-04-19] MEDS: Estrogens, Conjugated 0.3 MG TAB PO SCH (08:55)
[2022-04-19] MEDS: Enoxaparin Sodium 40 MG/0.4 ML SYRINGE SC SCH (08:55)
[2022-04-19] MEDS: Ertapenem 1 GM in Sodium Chloride 0.9% 100 ML IVPB SCH (08:55)
[2022-04-19] MEDS: Cholecalciferol 1,000 UNITS (25 MCG) TAB PO SCH (08:55)
[2022-04-19] MEDS: Zolpidem Tartrate 5 MG TAB PO SCH (20:32)
[2022-04-19] MEDS: Saccharomyces boulardii 250 MG CAP PO SCH (20:34)
[2022-04-19] MEDS: Amitriptyline HCl 25 MG TAB PO SCH (20:35)
[2022-04-20] MEDS: Cholecalciferol 1,000 UNITS (25 MCG) TAB PO SCH (08:39)
[2022-04-20] MEDS: Pregabalin 50 MG CAP PO SCH ×2 (08:39→20:08)
[2022-04-20] MEDS: Estrogens, Conjugated 0.3 MG TAB PO SCH (08:40)
[2022-04-20] MEDS: Enoxaparin Sodium 40 MG/0.4 ML SYRINGE SC SCH (08:40)
[2022-04-20] MEDS: Ertapenem 1 GM in Sodium Chloride 0.9% 100 ML IVPB SCH (08:50)
[2022-04-20] MEDS: Amitriptyline HCl 25 MG TAB PO SCH (20:09)
[2022-04-20] MEDS: Zolpidem Tartrate 5 MG TAB PO SCH (20:09)
[2022-04-20] MEDS: Saccharomyces boulardii 250 MG CAP PO SCH (20:09)
[2022-04-21] MEDS: Pregabalin 50 MG CAP PO SCH (08:44)
[2022-04-21] MEDS: Cholecalciferol 1,000 UNITS (25 MCG) TAB PO SCH (08:45)
[2022-04-21] MEDS: Estrogens, Conjugated 0.3 MG TAB PO SCH (08:45)
[2022-04-21] MEDS: Enoxaparin Sodium 40 MG/0.4 ML SYRINGE SC SCH (08:45)
[2022-04-21] MEDS: Ertapenem 1 GM in Sodium Chloride 0.9% 100 ML IVPB SCH (08:48)
[2022-04-21 11:48] VITALS: BP 126/81; TEMP 98.4
== END 2022-04-21 13:50 | disposition home or self-care (01) | DRG 690 ==
LOC: T4-B 21:33
PROVIDERS: ADMIT Internal Medicine; ATTEND Internal Medicine
PROC: 02HV33Z Insertion of Infusion Device into Superior Vena Cava, Percutaneous Approach (ICD-10-PCS; principal; 2022-04-15)
PROC: B548ZZA Ultrasonography of Superior Vena Cava, Guidance (ICD-10-PCS; 2022-04-15)
DX: N10 Acute pyelonephritis (principal); G61.0 Guillain-Barre syndrome; Z16.12 Extended spectrum beta lactamase (ESBL) resistance; R78.81 Bacteremia; G51.0 Bell's palsy; B96.20 Unspecified Escherichia coli [E. coli] as the cause of diseases classified elsewhere; F51.04 Psychophysiologic insomnia; F41.9 Anxiety disorder, unspecified; G89.4 Chronic pain syndrome; Z79.899 Other long term (current) drug therapy; Z98.51 Tubal ligation status; Z90.49 Acquired absence of other specified parts of digestive tract; Z90.710 Acquired absence of both cervix and uterus
CPT/HCPCS: 36415; 36569; 80048; 80053; 83735; 84100; 85025; 85652; 86140; C1751; J1335; J1644; J1650; J2185; J3490; U0003; U0005

== ENCOUNTER 2022-05-02 11:31 | Emergency (ER) | payer OTHER ==
[2022-05-02 12:18] LABS: #Eosinphils 0.1 thou/uL (0.0-0.7); #Lymphocytes 2.1 thou/uL (1.20-3.40); #Monocytes 0.3 thou/uL (0.11-0.59); #Neutrophils 2.5 thou/uL (1.40-6.50); %Eosinophils 2.2 % (0.0-10.0); %Lymphocytes 40.6 % (21.0-51.0); %Monocytes 6.3 % (0.0-10.0); %Neutrophils 49.9 % (42.0-75.0); Hemoglobin 11.9 g/dL (12.0-16.0); Mean Corpuscular HGB CONC 32.4 g/dL (32.0-36.0); Mean Corpuscular Hemoglobin 26.1 pg (27.0-31.0); Mean Corpuscular Volume 80.7 fL (78.0-98.0); Mean Platelet Volume 8.1 fL (7.4-10.4); Platelet Count 236 thou/uL (130-400); RBC Distribution Width 12.9 % (11.5-14.5); Red Blood Cell (RBC) Count 4.57 mill/uL (4.20-5.40)
[2022-05-02 12:29] LABS: ALT (SGPT) 36 U/L (8-55); AST (SGOT) 39 U/L (5-34); Albumin 4.2 g/dL (3.5-5.0); Alkaline Phosphatase 106 U/L (40-110); Anion Gap 9 mmol/L (10-20); BUN (Urea Nitrogen) 12 mg/dL (7.0-18.7); Bilirubin, Total 0.5 mg/dL (0.2-1.2); Calc. Creatinine Clearance 0 mL/min (70-130); Calcium 9.3 mg/dL (7.8-10.44); Carbon Dioxide 27 mmol/L (22-29); Chloride 108 mmol/L (98-107); Estimated GFR 77; Globulin 3.3 g/dL (2.4-3.5); Glucose 106 mg/dL (70-105); Potassium 3.9 mmol/L (3.5-5.1); Protein, Total 7.5 g/dL (6.0-8.3); Sodium 140 mmol/L (136-145)
[2022-05-02 12:49] LABS: Bilirubin Negative (Negative); Blood, Urine Negative (Negative); Clarity Clear (Clear); Glucose, Urine (Dipstick) Normal (Negative); Ketone, Urine Negative (Negative); Leukocyte 250 Leu/uL (Negative); Nitrite Negative (Negative); Protein, Urine (Dipstick) Negative (Neg-Trace); RBC/HPF None Seen HPF (0-3); Specific Gravity, Urine 1.009 (1.002-1.036); Squamous Epithelial 0-3 HPF (0-3); Urobilinogen Normal mg/dL (Less than 2)
[2022-05-02 12:58] LABS: Bacteria/HPF Rare-Few HPF (None Seen)
[2022-05-02 13:26] LABS: BHCG - Serum Negative (NEGATIVE); Pregs Control Background? CLEAR/WHITE (CLR/WHITE); Pregs Control Bar Appear? YES (CONTROL BAR)
[2022-05-02] MEDS ORDERED: Piperacillin/Tazobactam 3.375 GM VIAL ONE (13:30)
[2022-05-02] MEDS ORDERED: Ketorolac Tromethamine 30 MG/ML VIAL ONE (13:30)
== END 2022-05-02 14:49 | disposition home or self-care (01) ==
LOC: ERS 11:31
DX: R10.9 Unspecified abdominal pain (principal); K21.9 Gastro-esophageal reflux disease without esophagitis; Z79.899 Other long term (current) drug therapy
CPT/HCPCS: 36415; 80053; 81003; 81015; 83605; 84703; 85025; 87086; 96365; 96375; J1885; J2543

== ENCOUNTER 2022-11-19 12:13 | Outpatient (CLI) | payer OTHER | END 2022-11-19 12:14 | disposition home or self-care (01) | LOC: BICMAMMO 12:13 | PROVIDERS: ATTEND Physician Assistant | DX: Z12.31 Encounter for screening mammogram for malignant neoplasm of breast (principal) | CPT/HCPCS: 77063; 77067 ==

== ENCOUNTER 2023-12-16 14:08 | Outpatient (CLI) | payer OTHER | END 2023-12-16 14:09 | disposition home or self-care (01) | LOC: BICMAMMO 14:08 | PROVIDERS: ATTEND Physician Assistant | DX: Z12.31 Encounter for screening mammogram for malignant neoplasm of breast (principal) | CPT/HCPCS: 77063; 77067 ==

== ENCOUNTER 2024-04-25 11:43 | Emergency (ER) | payer OTHER, SELFPAY ==
[~2024-04-25 11:43] MED LIST changes: -Heparin 1,000 UNITS/ML VIAL ONE; +Iopamidol-370 76% 500 ML MDV (1 ML CHARGE) ONE
[2024-04-25 12:31] LABS: Bilirubin Negative (Negative); Blood, Urine 3+ (Negative); CAUTI Indications for Culture Pelvic or flank pain; Clarity Turbid (Clear); Glucose, Urine (Dipstick) Normal (Negative); Ketone, Urine Negative (Negative); Leukocyte 75 Leu/uL (Negative); Nitrite Negative (Negative); Protein, Urine (Dipstick) 100 mg/dL (Neg-Trace); RBC/HPF Greater than 50 HPF (0-3); Specific Gravity, Urine 1.014 (1.002-1.036); Squamous Epithelial None Seen HPF (0-3); Urobilinogen Normal mg/dL (Less than 2); WBC/HPF 0-3 HPF (0-3)
[2024-04-25 12:33] LABS: Bacteria/HPF 1+ HPF (None Seen)
[2024-04-25 12:34] LABS: Urine Culture Reflex No No
[2024-04-25 12:37] LABS: BHCG - Serum Negative (NEGATIVE); Pregs Control Background? CLEAR/WHITE (CLR/WHITE); Pregs Control Bar Appear? YES (CONTROL BAR)
[2024-04-25 12:39] LABS: #Basophils 0.04 10x3/uL (0.0-0.2); %Basophils 0.7 % (0.0-1.0); %Eosinophils 1.8 % (0.0-10.0); %Lymphocytes 31.9 % (21.0-51.0); %Monocytes 7.2 % (0.0-10.0); %Neutrophils 58.2 % (42.0-75.0); Hematocrit 37.5 % (36.0-47.0); Hemoglobin 12.4 g/dL (12.0-16.0); Mean Corpuscular HGB CONC 33.1 g/dL (32.0-36.0); Mean Corpuscular Hemoglobin 27.3 pg (27.0-31.0); Mean Corpuscular Volume 82.4 fL (78.0-98.0); Platelet Count 276 10x3/uL (130-400); RBC Distribution Width 13.3 % (11.5-14.5); Red Blood Cell (RBC) Count 4.55 mill/uL (4.20-5.40)
[2024-04-25 12:44] LABS: ALT (SGPT) 22 U/L (8-55); AST (SGOT) 28 U/L (5-34); Albumin 4.2 g/dL (3.5-5.0); Alkaline Phosphatase 118 U/L (40-110); Anion Gap 13 mmol/L (10-20); BUN (Urea Nitrogen) 16 mg/dL (7.0-18.7); Bilirubin, Total 0.4 mg/dL (0.2-1.2); CK (CPK) 88 U/L (29-168); Calc. Creatinine Clearance 0 mL/min (70-130); Calcium 9.6 mg/dL (7.8-10.44); Carbon Dioxide 25 mmol/L (22-29); Chloride 108 mmol/L (98-107); Estimated GFR 96; Globulin 3.1 g/dL (2.4-3.5); Glucose 76 mg/dL (70-105); Lipase 43 U/L (8-78); Potassium 3.8 mmol/L (3.5-5.1); Protein, Total 7.3 g/dL (6.0-8.3); Sodium 142 mmol/L (136-145)
[2024-04-25] MEDS ORDERED: fentaNYL 50 mcg/mL 1 mL Vial ONE (14:52)
[2024-04-25] MEDS ORDERED: Ketorolac Tromethamine 30 MG (1 mL) VIAL ONE (14:52)
[2024-04-25] MEDS ORDERED: Ondansetron PF 4 MG/2 ML Vial ONE (14:52)
== END 2024-04-25 15:56 | disposition home or self-care (01) ==
LOC: ERS 11:43
DX: N20.1 Calculus of ureter (principal); K21.9 Gastro-esophageal reflux disease without esophagitis; F32.A Depression, unspecified; Z79.899 Other long term (current) drug therapy
CPT/HCPCS: 36415; 74177; 80053; 81001; 82550; 83605; 83690; 84703; 85025; 87086; 96374; 96375; J1885; J2405; J3010; Q9967

== ENCOUNTER 2024-05-03 09:56 | Outpatient (CLI) | payer OTHER ==
[2024-05-03 10:49] LABS: #Basophils Less than 0.03 10x3/uL (0.0-0.2); %Basophils 0.4 % (0.0-1.0); %Eosinophils 3.2 % (0.0-10.0); %Lymphocytes 33.8 % (21.0-51.0); %Neutrophils 55.4 % (42.0-75.0); Hematocrit 33.1 % (36.0-47.0); Hemoglobin 10.8 g/dL (12.0-16.0); Mean Corpuscular HGB CONC 32.6 g/dL (32.0-36.0); Mean Corpuscular Hemoglobin 27.1 pg (27.0-31.0); Mean Platelet Volume 10.2 fL (7.4-10.4); Platelet Count 241 10x3/uL (130-400); RBC Distribution Width 13.3 % (11.5-14.5); Red Blood Cell (RBC) Count 3.99 mill/uL (4.20-5.40)
[2024-05-03 11:03] LABS: PTT 28.3 sec (22.9-36.1)
[2024-05-03 11:17] LABS: ALT (SGPT) 24 U/L (8-55); AST (SGOT) 33 U/L (5-34); Albumin 3.7 g/dL (3.5-5.0); Alkaline Phosphatase 99 U/L (40-110); Anion Gap 9 mmol/L (10-20); BUN (Urea Nitrogen) 15 mg/dL (7.0-18.7); Bilirubin, Direct 0.1 mg/dL (0.1-0.3); Bilirubin, Total 0.3 mg/dL (0.2-1.2); Calc. Creatinine Clearance 0 mL/min (70-130); Calcium 9.2 mg/dL (7.8-10.44); Carbon Dioxide 27 mmol/L (22-29); Chloride 108 mmol/L (98-107); Estimated GFR 90; Glucose 106 mg/dL (70-105); Potassium 3.9 mmol/L (3.5-5.1); Protein, Total 6.2 g/dL (6.0-8.3); Sodium 140 mmol/L (136-145)
== END 2024-05-03 09:57 | disposition home or self-care (01) ==
LOC: LABBT 09:56
PROVIDERS: ATTEND Urology
DX: Z01.818 Encounter for other preprocedural examination (principal); N20.1 Calculus of ureter
CPT/HCPCS: 80048; 80076; 85025; 85610; 85730; 87086; 93005; 93010

== ENCOUNTER 2024-05-08 06:11 | Day surgery (SDC) | payer OTHER ==
[2024-05-03 10:08] VITALS: BMI 29.9
[2024-05-08] MEDS ORDERED: Midazolam HCl 2 mg/2 ml Vial ONE (07:09)
[2024-05-08] MEDS ORDERED: PROPOFOL 20 ML ONE (07:09)
[2024-05-08] MEDS ORDERED: fentaNYL PF 100 MCG/2 ML SYRINGE ONE (07:09)
[2024-05-08] MEDS ORDERED: Lidocaine 1% PF 5 ML VIAL ONE (07:09)
[2024-05-08] MEDS ORDERED: Iopamidol 30 ML ONE (07:20)
[2024-05-08] MEDS ORDERED: CEFAZOLIN 2 GM VIAL ONE (07:21)
[2024-05-08] MEDS ORDERED: Sodium Chloride 0.9% 0 ML ONE (07:21)
[2024-05-08] MEDS ORDERED: Dexamethasone 20 MG/5 ML VIAL ONE (07:40)
[2024-05-08] MEDS ORDERED: Ketorolac Tromethamine 30 MG (1 mL) VIAL ONE (08:24)
[2024-05-08] MEDS ORDERED: PHENYLEPHRINE-NS 100 MCG/ML 10 ML SYRINGE ONE (08:24)
[2024-05-08] MEDS ORDERED: Ondansetron PF 4 MG/2 ML Vial ONE (08:37)
[2024-05-08] MEDS ORDERED: fentaNYL 50 mcg/mL 1 mL Vial ONE ×2 (08:53→09:18)
[2024-05-08] MEDS ORDERED: HYDROcodone/Acetaminophen 5/325 mg Tablet ONE (10:56)
== END 2024-05-08 10:40 | disposition home or self-care (01) ==
LOC: SDC 06:11
PROVIDERS: ATTEND Urology
PROC: 0TC78ZZ Extirpation of Matter from Left Ureter, Via Natural or Artificial Opening Endoscopic (ICD-10-PCS; principal; 2024-05-08)
PROC: 0T778DZ Dilation of Left Ureter with Intraluminal Device, Via Natural or Artificial Opening Endoscopic (ICD-10-PCS; principal; 2024-05-08)
DX: N20.1 Calculus of ureter (principal); G61.0 Guillain-Barre syndrome; Z90.49 Acquired absence of other specified parts of digestive tract; Z90.710 Acquired absence of both cervix and uterus; Z79.899 Other long term (current) drug therapy
CPT/HCPCS: 74420; 82365; 88300; C1769; C2617; J1100; J1885; J2250; J2405; J2704; J3010; Q9967

== ENCOUNTER 2024-07-12 10:14 | Emergency (ER) | payer OTHER ==
[2024-07-12 10:51] LABS: #Basophils 0.04 10x3/uL (0.0-0.2); %Basophils 0.8 % (0.0-1.0); %Lymphocytes 40.9 % (21.0-51.0); %Monocytes 8.3 % (0.0-10.0); %Neutrophils 47.8 % (42.0-75.0); Hematocrit 35.4 % (36.0-47.0); Hemoglobin 11.8 g/dL (12.0-16.0); Mean Corpuscular HGB CONC 33.3 g/dL (32.0-36.0); Mean Corpuscular Hemoglobin 26.8 pg (27.0-31.0); Mean Corpuscular Volume 80.5 fL (78.0-98.0); Mean Platelet Volume 10.8 fL (7.4-10.4); Platelet Count 224 10x3/uL (130-400); RBC Distribution Width 12.7 % (11.5-14.5)
[2024-07-12 11:12] LABS: ALT (SGPT) 32 U/L (8-55); AST (SGOT) 36 U/L (5-34); Albumin 3.9 g/dL (3.5-5.0); Alkaline Phosphatase 115 U/L (40-110); Anion Gap 11 mmol/L (10-20); BUN (Urea Nitrogen) 13 mg/dL (7.0-18.7); Bilirubin, Total 0.2 mg/dL (0.2-1.2); Calc. Creatinine Clearance 0 mL/min (70-130); Carbon Dioxide 27 mmol/L (22-29); Chloride 108 mmol/L (98-107); Estimated GFR 98; Globulin 2.9 g/dL (2.4-3.5); Glucose 89 mg/dL (70-105); Potassium 3.6 mmol/L (3.5-5.1); Protein, Total 6.8 g/dL (6.0-8.3); Sodium 142 mmol/L (136-145)
[2024-07-12 11:40] LABS: BHCG - Serum Negative (NEGATIVE); Pregs Control Background? CLEAR/WHITE (CLR/WHITE); Pregs Control Bar Appear? YES (CONTROL BAR)
[2024-07-12 11:53] LABS: Bacteria/HPF None Seen HPF (None Seen); Bilirubin Negative (Negative); Blood, Urine Negative (Negative); CAUTI Indications for Culture Dysuria,urgency,freq; Clarity Clear (Clear); Glucose, Urine (Dipstick) Normal (Negative); Ketone, Urine Negative (Negative); Leukocyte Negative Leu/uL (Negative); Nitrite Negative (Negative); Protein, Urine (Dipstick) Negative (Neg-Trace); RBC/HPF 0-3 HPF (0-3); Specific Gravity, Urine 1.011 (1.002-1.036); Squamous Epithelial 0-3 HPF (0-3); Urobilinogen Normal mg/dL (Less than 2); WBC/HPF 0-3 HPF (0-3); pH, Urine 6.5 (5.0-9.0)
[2024-07-12 11:58] LABS: Urine Culture Reflex No No
[2024-07-12] MEDS ORDERED: Ketorolac Tromethamine 30 MG (1 mL) VIAL ONE (12:20)
[2024-07-12] MEDS ORDERED: Ondansetron ODT 4 MG TAB ONE (12:21)
[2024-07-12] MEDS ORDERED: Cyclobenzaprine 10 MG TAB ONE (12:42)
== END 2024-07-12 13:13 | disposition home or self-care (01) ==
LOC: ERS 10:14
DX: R29.898 Other symptoms and signs involving the musculoskeletal system (principal)
CPT/HCPCS: 36415; 74176; 80053; 81001; 84703; 85025; 96372; J1885; Q0162

== ENCOUNTER 2025-06-11 11:31 | Emergency (ER) | payer OTHER ==
[2025-06-11 12:55] LABS: #Basophils 0.04 10x3/uL (0.0-0.2); #Eosinophils 0.09 10x3/uL (0.0-0.7); #Monocytes 0.38 10x3/uL (0.11-0.59); #Neutrophils 2.30 10x3/uL (1.40-6.50); %Basophils 0.8 % (0.0-1.0); %Eosinophils 1.8 % (0.0-10.0); %Lymphocytes 43.0 % (21.0-51.0); %Monocytes 7.7 % (0.0-10.0); %Neutrophils 46.5 % (42.0-75.0); Hematocrit 39.1 % (36.0-47.0); Hemoglobin 13.1 g/dL (12.0-16.0); Mean Corpuscular Hemoglobin 27.1 pg (27.0-31.0); Mean Corpuscular Volume 80.8 fL (78.0-98.0); Platelet Count 235 10x3/uL (130-400); Red Blood Cell (RBC) Count 4.84 mill/uL (4.20-5.40); White Blood Cell (WBC) Count 4.95 10x3/uL (4.8-10.8)
[2025-06-11 13:13] LABS: ALT (SGPT) 40 U/L (Less than 34); AST (SGOT) 43 U/L (11-34); Albumin 4.2 g/dL (3.1-4.5); Alkaline Phosphatase 82 U/L (40-110); Anion Gap 10 mmol/L (10-20); BUN (Urea Nitrogen) 11 mg/dL (7.0-18.7); Bilirubin, Total 0.4 mg/dL (0.3-1.2); Calc. Creatinine Clearance 0 mL/min (70-130); Calcium 9.0 mg/dL (7.8-10.44); Carbon Dioxide 26 mmol/L (22-29); Chloride 108 mmol/L (98-107); Globulin 2.8 g/dL (2.4-3.5); Glucose 86 mg/dL (70-105); Potassium 3.8 mmol/L (3.5-5.1); Sodium 140 mmol/L (136-145)
[2025-06-11] MEDS ORDERED: diphenhydrAMINE 50 MG/ML VIAL ONE (13:20)
[2025-06-11] MEDS ORDERED: Metoclopramide HCl 10 MG (2 mL) VIAL ONE (13:21)
== END 2025-06-11 15:13 | disposition home or self-care (01) ==
LOC: ERS 11:31
DX: R51.9 Headache, unspecified (principal)
CPT/HCPCS: 70450; 80053; 85025; 96365; 96375; J1200; J2765